=== PATIENT | female | born 1940 | race Caucasian/White ===

== ENCOUNTER 2017-11-25 06:00 | Day surgery (SDC) | payer OTHER ==
--- NOTE | 2017-11-23 10:24 | RAD REPORT ---
EXAM DESCRIPTION: Daysi Macario (2 Views)11/23/2017 9:26 am CLINICAL HISTORY: Preop for shoulder surgery COMPARISON: 2008 FINDINGS: The lungs appear clear of acute infiltrate. The heart is normal size IMPRESSION: No acute abnormalities displayed
[2017-11-23 10:30] LABS: Absolute Lymphocytes (CBC) 3.5 K/uL (0.7-4.9); Absolute Monocytes 0.5 K/uL (0.1-1.3); Absolute Neutrophil 3.1 K/uL (1.8-8.0); Basophils % 0.7 % (0-1.3); Eosinophils % 2.2 % (0-4.4); Hematocrit 40.8 % (36.0-45.0); Lymphocytes % 48.2 % (15.3-44.8); MCH 29.1 pg (27.0-35.0); MCV 88.5 fL (80-100); MPV 8.6 fL (7.6-11.3); Monocytes % 6.7 % (3.3-12.3); RBC Red Blood Cell Count 4.61 M/uL (3.86-4.86)
[2017-11-23 10:35] LABS: Protime INR 1.06
[2017-11-23 10:42] LABS: Potassium 3.6 mEq/L (3.6-5.0)
[2017-11-25] MEDS ORDERED: Ringers Lactate 1,000 ML IV ONE ×2 (06:08→10:05)
[2017-11-25] MEDS ORDERED: EPINEPHRINE/PF 1 MG/ML AMP ONE (06:56)
[2017-11-25] MEDS ORDERED: CLINDAMYCIN INJ 600 MG in NA CHLORIDE 0.9% 50 ML IV ONE (07:00)
[2017-11-25] MEDS ORDERED: FENTANYL CITR 100 MCG/2 ML ONE (07:01)
[2017-11-25] MEDS ORDERED: MIDAZOLAM HCL 2 MG/2 ML INJ ONE (07:01)
[2017-11-25] MEDS ORDERED: DEXAMETHASONE 10 MG/ML VIAL ONE (07:02)
[2017-11-25] MEDS ORDERED: ROPLVACAINE HCL 40 ML ONE (07:02)
[2017-11-25] MEDS ORDERED: ROCURONIUM 50 MG/5 ML VIAL IV ONE (07:12)
[2017-11-25] MEDS ORDERED: PROPOFOL 200 MG/20 ML VIAL IV ONE (07:12)
[2017-11-25] MEDS ORDERED: LIDOCAINE 2% ONE (07:15)
[2017-11-25] MEDS ORDERED: ONDANSETRON HCL 40 MG/20 ML VIAL ONE (08:08)
[2017-11-25] MEDS ORDERED: EPHEDRINE SULF 50 MG/5 ML SYR ONE (08:31)
[2017-11-25] MEDS ORDERED: GLYCOPYRROLATE 0.2 MG/ML SYR ONE (09:36)
[2017-11-25] MEDS ORDERED: NEOSTIGMINE 1 MG/ML -5 ML SYRINGE ONE (09:45)
--- NOTE | 2017-11-25 09:57 | P.BOP ---
Preoperative diagnosis: right rotator cuff tear, SLAP tear, impingement syndrome , AC arthrosis Postoperative diagnosis: same Primary procedure: right shoulder arthroscopic rotator cuff repair Secondary procedure: arthroscopic biceps tenotomy with SLAP debridement Other procedure(s): arthroscopic subacromial decompression with distal clavicle excision Disability Counselor: NONE,NONE Estimated blood loss: <10 cc Specimen: none Findings: see dictation Anesthesia: General Complications: None Implants: 5.5 mm arthrex corkscrew, 4.75 mm swivelock Fluids & blood products: per anesthesia record Transferred to: Recovery Room Condition: Good
[2017-11-25] MEDS ORDERED: PROMETHAZINE 25 MG/ML VIAL ONE (10:03)
--- NOTE | 2017-11-25 11:08 | RAD REPORT ---
EXAM DESCRIPTION: RAD - Shoulder 1 View - 11/25/2017 10:28 am FINDINGS: Single view of the shoulder obtained labeled postop. No fracture or dislocation. Width of the AC joint is within normal limits. No suspicious or unexpected finding.
[2017-11-25] MEDS ORDERED: HYDROCODONE/APAP 7.5/325 MG TAB ONE (11:18)
[2017-11-25] MEDS ORDERED: Mastisol Adhesive Liq ONE (12:25)
--- NOTE | 2017-11-25 20:51 | OP ---
Date of Procedure: 11/25/2017 Surgeon: Jagdish Turpin MD Preoperative Diagnoses: 1. Right shoulder rotator cuff tear. 2. Right shoulder SLAP tear. 3. Right shoulder bicipital tenosynovitis. 4. Right shoulder impingement syndrome. 5. Right shoulder AC joint arthrosis. Postoperative Diagnoses: 1. Right shoulder rotator cuff tear. 2. Right shoulder SLAP tear. 3. Right shoulder bicipital tenosynovitis. 4. Right shoulder impingement syndrome. 5. Right shoulder AC joint arthrosis. Procedure Performed: 1. Right shoulder arthroscopic rotator cuff repair. 2. Right shoulder arthroscopic biceps tenotomy and SLAP tear debridement. 3. Right shoulder arthroscopic subacromial decompression. 4. Right shoulder arthroscopic distal clavicle excision. Anesthesia: General endotracheal. Fluids: Per Anesthesia record. Estimated Blood Loss: Less than 10 cc. Complications: None. Implants: 1. One 5.5 mm Arthrex corkscrew. 2. One 4.75 mm Arthrex SwiveLock. Indication For Procedure: Ms. Olmstead is a 76-year-old female, who presented to my clinic with signs, symptoms, and MRI findings consistent with right shoulder rotator cuff tear as well impingement syndrome with AC joint arthrosis. I discussed with the patient at length risks and benefits associated with operative and nonoperative treatment as well as postoperative rehabilitation. The patient and her expressed understanding and elected to proceed with operative treatment. Description Of Procedure: After informed consent was obtained, the patient was identified in the preoperative holding area. The right upper extremity was marked. The patient was then taken back to PACU and underwent an interscalene block by Anesthesia. She was then taken to the operating room, transferred to the operating table in the supine fashion, and placed under general endotracheal anesthesia. She was then placed in the beach chair position with her extremities well padded. Right upper extremity was then examined and the patient had full range of motion with no instability noted of her glenohumeral joint. The right upper extremity was then prepped and draped in usual sterile fashion. A time-out was initiated. Correct patient and procedure were confirmed and identified. The patient had received preoperative prophylactic antibiotics via the posterior portal position. A spinal needle was introduced into glenohumeral joint. The shoulder was then injected with 30 cc of normal saline to distend the shoulder joint. A posterior portal was created and the arthroscope was introduced and a diagnostic arthroscopy was performed. The patient was noted to have pain of her superior labrum as well as type 2 SLAP tear. There was some mild inflammation and fraying of the biceps tendon anchor , and biceps tenotomy was performed. An arthroscopic shaver was then brought via an anterior portal that was placed in the cannula, and debridement was performed using arthroscopic shaver of the SLAP tear and debridement of the biceps tendon anchor after tenotomy was performed. The arthroscope was brought on the axillary pouch. There were no loose bodies into the pouch. Anterior and posterior labrum were found to be intact. Subscapularis was found to be intact. There was a full-thickness tear of the anterior aspect of the supraspinatus. Then, a lateral portal was created. An obturator was then able to be brought into the lateral shoulder and into the intra-articular space confirming a full-thickness tear. The arthroscope was then brought into subacromial space. Subacromial bursectomy was performed using arthroscopic shaver and radiofrequency ablator. The rotator cuff tear was then identified at inferior aspect of the supraspinatus. Using an arthroscopic shaver, the rotator cuff tear was debrided. The soft tissues were then debrided off the greater tuberosity and a yordan was used to create a bleeding bony bed for repair. A standard single stab incision was made just lateral to acromion for placement of the double loaded anchor. After the greater tuberosity was punched , a 5.5 mm Arthrex corkscrew was placed for medial row fixation. It was double loaded. The sutures were passed in an anterior to posterior fashion and medial row fixation was then performed tying the sutures in a horizontal mattress fashion. There was good medial row fixation. A single lateral row anchor was placed using a 4.75 mm Arthrex SwiveLock and passing all 4 suture limbs through it and this was placed in the lateral aspect of the greater tuberosity. There was good overall reduction of the rotator cuff tear. There was some fraying noted of the acromial ligament and a subacromial decompression was performed tearing off tissue of the undersurface of the acromion using a radiofrequency ablator and acromioplasty was then used with an arthroscopic yordan. Next, attention was taken to the AC joint via the anterior portal. Anterior portal was brought into the subacromial space. Radiofrequency ablator was then used to clean up the soft tissue on the undersurface of the AC joint and approximately 5 mm of distal clavicle was then removed using an arthroscopic yordan. The arthroscopic instruments were then removed without complications. Skin incisions at the portals were approximated using a 2-0 Vicryl and a 3-0 Monocryl. Sterile dressings were applied. The patient was placed in a postoperative shoulder immobilizer, awakened, and transferred to the PACU in stable condition. Postoperative Plan: Ms. Olmstead will follow Physical Therapy following the medium rotator cuff repair protocol to begin at 4 weeks postoperatively. She will follow up in my clinic next week for wound checks. PAZ/TORSTEN Voice ID: [id number] Report ID: [id number] ANDRES
== END 2017-11-25 12:00 | disposition home or self-care (01) ==
LOC: OR 06:00
PROVIDERS: ATTEND Orthopaedic Surgery Sports Medicine
PROC: 0RNJ4ZZ Release Right Shoulder Joint, Percutaneous Endoscopic Approach (ICD-10-PCS; 2017-11-25)
PROC: 0RBJ4ZZ Excision of Right Shoulder Joint, Percutaneous Endoscopic Approach (ICD-10-PCS; 2017-11-25)
PROC: 0PB94ZZ Excision of Right Clavicle, Percutaneous Endoscopic Approach (ICD-10-PCS; 2017-11-25)
PROC: 0LQ14ZZ Repair Right Shoulder Tendon, Percutaneous Endoscopic Approach (ICD-10-PCS; principal; 2017-11-25 07:30)
DX: M75.121 Complete rotator cuff tear or rupture of right shoulder, not specified as traumatic (principal); S43.431A Superior glenoid labrum lesion of right shoulder, initial encounter; M19.011 Primary osteoarthritis, right shoulder; M75.21 Bicipital tendinitis, right shoulder; M25.811 Other specified joint disorders, right shoulder; M19.90 Unspecified osteoarthritis, unspecified site; I10 Essential (primary) hypertension; E78.00 Pure hypercholesterolemia, unspecified; Z88.0 Allergy status to penicillin; Z83.3 Family history of diabetes mellitus; Z82.49 Family history of ischemic heart disease and other diseases of the circulatory system
CPT/HCPCS: 29822; 29824; 29826; 29827; 36415; 71046; 73020; 80048; 85025; 85610; 85730; J0171; J1100; J2250; J2405; J2550; J2710; J2795; J3010; J3490

== ENCOUNTER 2018-05-26 03:05 | Inpatient (IN) | payer OTHER ==
--- OUTSIDE RECORDS SUMMARY | 2018-05-26 03:07 | XMS REPORT ---
:1940 Author Organization [employer] Care Team Providers Name Role Phone Jagdish Turpin Provider Role Unavailable Allergies, Adverse Reactions, Alerts Substance Reaction Event Type penicillin Info Not Available Drug Allergy Problems Problem Type Condition Code Onset Dates Condition Status Problem Arthrosis of right M19.011 Active acromioclavicular joint Problem Complete rotator cuff tear or M75.121 Active rupture of right shoulder, not specified as traumatic Assessment Impingement syndrome of right M75.41 Active shoulder Assessment Pain, joint, shoulder, right M25.511 Active Assessment Complete rotator cuff tear or M75.121 Active rupture of right shoulder, not specified as traumatic Medications Medication Code Code Instructions Start End Status Dosage System Date Date Potassium [facility] 70292984565 10 MEQ Oral Active TAKE 1 Chloride Kiarra TABLET BY ER MOUTH EVERY DAY Carvedilol [facility] 09171359784 25 MG Oral Active TAKE 1 TABLET BY MOUTH TWICE A DAY WITH FOOD NIFEdipine ER [facility] 45032994566 30 MG Oral Active TAKE 1 TABLET (30 MG) BY MOUTH DAILY Valsartan-Hydr [facility] 01651586520 320-25 MG Oral Active TAKE 1 ochlorothiazid TABLET BY e MOUTH EVERY DAY Trazodone HCl [facility] 75139020966 50 MG Oral Active TAKE 1 TABLET BY MOUTH DAILY AT BEDTIME NEEDED [place] [facility] 34884127349 5-325 MG Orally Feb 28, Feb Active 1 tablet every 6 hrs 2017 14, as needed 2017 Hydrocodone-Ac [facility] 84031440558 7.5-325 MG Oral Active (Schedule etaminophen II Drug) TAKE 1 TABLET BY MOUTH EVERY 4-6 HOURS NEEDED FOR PAIN Results No Known Results Summary Purpose [employer] Submission
--- OUTSIDE RECORDS SUMMARY | 2018-05-26 03:07 | XMS REPORT ---
:1940 Author Organization [employer] Care Team Providers Name Role Phone Jagdish Turpin Provider Role Unavailable Allergies, Adverse Reactions, Alerts Substance Reaction Event Type penicillin Info Not Available Drug Allergy Problems Problem Type Condition Code Onset Dates Condition Status Assessment Sprain of right rotator cuff S43.421D Active capsule, subsequent encounter Problem Arthrosis of right M19.011 Active acromioclavicular joint Assessment Arthrosis of right M19.011 Active acromioclavicular joint Assessment Acute pain of right shoulder M25.511 Active Assessment Impingement syndrome of right M75.41 Active shoulder Medications Medication Code Code Instructions Start End Status Dosage System Date Date Carvedilol [facility] 03660514113 25 MG Oral Active TAKE 1 TABLET BY MOUTH TWICE A DAY WITH FOOD NIFEdipine ER [facility] 90924068302 30 MG Oral Active TAKE 1 TABLET (30 MG) BY MOUTH DAILY Hydrocodone-Ac [facility] 96327351688 5-325 MG Orally January 19, Jan 29, Active 1 tablet etaminophen every 6 hrs 2017 2017 as needed Hydrocodone-Ac [facility] 16837832220 7.5-325 MG Oral Active (Schedule etaminophen II Drug) TAKE 1 TABLET BY MOUTH EVERY 4-6 HOURS NEEDED FOR PAIN Trazodone HCl [facility] 80340287706 50 MG Oral Active TAKE 1 TABLET BY MOUTH DAILY AT BEDTIME NEEDED Potassium [facility] 97202249757 10 MEQ Oral Active TAKE 1 Chloride Kiarra TABLET BY ER MOUTH EVERY DAY Valsartan-Hydr [facility] 95944820758 320-25 MG Oral Active TAKE 1 ochlorothiazid TABLET BY e MOUTH EVERY DAY Results No Known Results Summary Purpose [employer] Submission
[2018-05-26] MEDS ORDERED: NA CHLORIDE 0.9% 500 ML ONE (04:28)
[2018-05-26 04:46] LABS: Protime INR 1.23
[2018-05-26 04:47] LABS: Absolute Lymphocytes (CBC) 3.9 K/uL (0.7-4.9); Absolute Monocytes 1.4 K/uL (0.1-1.3); Absolute Neutrophil 7.8 K/uL (1.8-8.0); Basophils % 0.2 % (0-1.3); Eosinophils % 0.7 % (0-4.4); Hematocrit 34.4 % (36.0-45.0); Lymphocytes % 29.7 % (15.3-44.8); MCH 30.1 pg (27.0-35.0); MCV 89.6 fL (80-100); MPV 9.4 fL (7.6-11.3); Monocytes % 10.3 % (3.3-12.3); RBC Red Blood Cell Count 3.84 M/uL (3.86-4.86)
[2018-05-26 04:59] LABS: ALT/SGPT 28 U/L (12-78); AST/SGOT 19 U/L (15-37); Alkaline Phosphatase 75 U/L (45-117); BUN Blood Urea Nitrogen 32 mg/dL (7-18); Bicarbonate 27 mmol/L (21-32); Bilirubin Direct 0.2 mg/dL (0-0.2); Bilirubin Total 0.5 mg/dL (0.2-1.0); Glucose Level 97 mg/dL (74-106); Magnesium 2.4 mg/dL (1.8-2.4); NT PRO-BNP 655 pg/mL (<450); Protein, Total 7.3 g/dL (6.4-8.2); Sodium Level 137 mmol/L (136-145); Troponin (Emerg Dept Use Only) < 0.02 ng/mL (0.0-0.045)
[2018-05-26] MEDS ORDERED: POTASSIUM 25 MEQ EFFERV TAB ONE (05:20)
--- NOTE | 2018-05-26 06:10 | EDPHYS ---
Physician Documentation [facility] Name: Julianne Olmstead Age: 77 yrs Sex: Female : 1940 Arrival Date: 05/26/2018 Time: 03:07 Bed 13 Private MD: ED Physician Cachorro Dumont HPI: 05/26 06:06 This 77 yrs old Female presents to ER via Ambulatory with complaints of Chest gs Pain. 06:06 The patient or guardian reports chest pain that is located primarily in the anterior gs chest wall. Onset: 2 day(s) ago. The pain does not radiate. Associated signs and symptoms: Pertinent positives: cough. The chest pain is described as a heaviness. Duration: The patient or guardian reports a single episode, that is still ongoing. Modifying factors: The symptoms are alleviated by nothing. the symptoms are aggravated by nothing. Severity of pain: At its worst the pain was moderate in the emergency department the pain is unchanged. Historical: - Allergies: 03:10 PENICILLINS; cc3 - Home Meds: 03:10 trazodone 50 mg Oral tab 1 tab once a day [Active]; Nifedipine ER Oral 30 mg daily cc3 [Active]; carvedilol 25 mg oral tab 1 tab 2 times per day [Active]; valsartan-hydrochlorothiazide 320-25 mg oral tab 1 tab once daily [Active]; - PMHx: 03:10 Hypertension; High Cholesterol; cc3 - PSHx: 03:10 ; Hysterectomy; rectal surgery; right ear surgery; kidney stent; cc3 - Immunization history:: Adult Immunizations up to date. - Social history:: Smoking status: Patient/guardian denies using tobacco, never smoked. - Ebola Screening: : No symptoms or risks identified at this time. ROS: 06:06 All other systems are negative. gs Exam: 06:06 Head/Face: Normocephalic, atraumatic. Eyes: Pupils equal round and reactive to light, gs extra-ocular motions intact. Lids and lashes normal. Conjunctiva and sclera are non-icteric and not injected. Cornea within normal limits. Periorbital areas with no swelling, redness, or edema. ENT: Nares patent. No nasal discharge, no septal abnormalities noted. Tympanic membranes are normal and external auditory canals are clear. Oropharynx with no redness, swelling, or masses, exudates, or evidence of obstruction, uvula midline. Mucous membranes moist. Neck: Trachea midline, no thyromegaly or masses palpated, and no cervical lymphadenopathy. Supple, full range of motion without nuchal rigidity, or vertebral point tenderness. No Meningismus. Chest/axilla: Normal chest wall appearance and motion. Nontender with no deformity. No lesions are appreciated. Cardiovascular: Regular rate and rhythm with a normal S1 and S2. No gallops, murmurs, or rubs. Normal PMI, no JVD. No pulse deficits. Abdomen/GI: Soft, non-tender, with normal bowel sounds. No distension or tympany. No guarding or rebound. No evidence of tenderness throughout. Back: No spinal tenderness. No costovertebral tenderness. Full range of motion. Skin: Warm, dry with normal turgor. Normal color with no rashes, no lesions, and no evidence of cellulitis. MS/ Extremity: Pulses equal, no cyanosis. Neurovascular intact. Full, normal range of motion. Neuro: Awake and alert, GCS 15, oriented to person, place, time, and situation. Cranial nerves II-XII grossly intact. Motor strength 5/5 in all extremities. Sensory grossly intact. Cerebellar exam normal. Normal gait. 06:06 Constitutional: The patient appears alert, awake. 06:06 ECG was reviewed by the Attending Physician. 06:06 Respiratory: the patient does not display signs of respiratory distress, Respirations: normal, Breath sounds: decreased breath sounds, that are mild, are located in both bases. Vital Signs: 03:10 BP 92 / 38 LA; Pulse 64; Resp 16 S; Temp 98.7(O); Pulse Ox 95% on R/A; Weight 68.04 kg cc3 (R); Height 5 ft. 0 in. (152.40 cm) (R); Pain 8/10; 03:41 BP 105 / 48 RA; Pulse 65; Resp 17; Pulse Ox 95% on R/A; cc3 04:45 BP 106 / 46; Pulse 72; Resp 17 S; Pulse Ox 96% on R/A; cc3 05:02 BP 92 / 41; Pulse 75; Resp 21 S; Pulse Ox 96% on R/A; cc3 06:12 BP 110 / 54; Pulse 78; Resp 19 S; Pulse Ox 95% on R/A; cc3 06:45 BP 112 / 60; Pulse 74; Resp 19 S; Pulse Ox 95% on R/A; cc3 07:23 BP 101 / 52; Pulse 74; Resp 18; Pulse Ox 96% on R/A; ph 03:10 Body Mass Index 29.30 (68.04 kg, 152.40 cm) cc3 MDM: 03:28 Patient medically screened. 06:06 Differential diagnosis: acute myocardial infarction, pleurisy, pneumonia, pulmonary gs embolus, thoracic aortic disection. Data reviewed: vital signs, nurses notes. Counseling: I had a detailed discussion with the patient and/or guardian regarding: the historical points, exam findings, and any diagnostic results supporting the discharge/admit diagnosis, the need for further work-up and treatment in the hospital. 05/26 03:29 Order name: Basic Metabolic Panel; Complete Time: 05:00 05/26 03:29 Order name: CBC with Diff; Complete Time: 05:00 05/26 03:29 Order name: LFT's; Complete Time: 05:00 05/26 03:29 Order name: Magnesium; Complete Time: 05:00 05/26 03:29 Order name: NT PRO-BNP; Complete Time: 05:00 05/26 03:29 Order name: PT-INR; Complete Time: 05:00 05/26 03:29 Order name: Troponin (emerg Dept Use Only); Complete Time: 05:00 05/26 03:29 Order name: XRAY Chest (1 view) 05/26 03:53 Order name: CT Chest For PE Angio 05/26 06:00 Order name: Lactate 05/26 06:00 Order name: Blood Culture* 05/26 06:00 Order name: Procalcitonin 05/26 03:29 Order name: EKG; Complete Time: 03:30 05/26 03:29 Order name: Cardiac monitoring; Complete Time: 03:42 05/26 03:29 Order name: EKG - Nurse/Tech; Complete Time: 03:42 05/26 03:29 Order name: IV Saline Lock; Complete Time: 03:49 05/26 03:29 Order name: Labs collected and sent; Complete Time: 03:49 05/26 03:29 Order name: O2 Per Protocol; Complete Time: 03:43 gs 05/26 03:29 Order name: O2 Sat Monitoring; Complete Time: 03:43 05/26 03:31 Order name: Misc. Order: check bp both arms; Complete Time: 03:42 gs 05/26 07:29 Order name: Diet Heart Healthy; Complete Time: 07:30 ph EC:06 Rate is 60 beats/min. Rhythm is regular. RI interval is normal. QRS interval is normal. gs T waves are Flattened. No ST changes noted. Clinical impression: NSR w/ Non-specific ST/T Changes. Interpreted by me. Administered Medications: 04:20 Drug: NS 0.9% 500 ml Route: IV; Rate: bolus; Site: left antecubital; cc3 05:40 Follow up: Response: No adverse reaction; IV Status: Completed infusion; IV Intake: cc3 500ml 05:35 Drug: Potassium Effervescent Tablet 50 mEq Route: PO; cc3 06:00 Follow up: Response: No adverse reaction cc3 06:35 Drug: NS 0.9% 1000 ml Route: IV; Rate: 1 bolus; Site: left antecubital; cc3 07:59 Follow up: IV Status: Completed infusion ph 06:40 Drug: Clindamycin 900 mg Route: IVPB; Infused Over: 30 mins; Site: left antecubital; cc3 07:24 Follow up: Response: No adverse reaction; IV Status: Completed infusion ph 07:25 Drug: Cefepime 1 grams Route: IVPB; Rate: 200 ml/hr; Infused Over: 30 mins; Site: left ph antecubital; 07:59 Follow up: Response: No adverse reaction; IV Status: Completed infusion ph Disposition: 05/26/18 06:09 Hospitalization ordered by Tenisha Franklin for Inpatient Admission. Preliminary diagnosis is Lobar pneumonia, unspecified organism. - Bed requested for Telemetry/MedSurg (observation). - Status is Inpatient Admission. ph - Condition is Stable. - Problem is new. - Symptoms have improved. UTI on Admission? No Signatures: Dispatcher [employer] EDMichelle Garcia RN RN ph Fitzgerald, Diane, RN RN df Starr, Gregory, MD MD gs Cordel, Charlene cc3 Corrections: (The following items were deleted from the chart) 07: 06:09 Hospitalization Ordered by Tenisha Franklin MD for Inpatient Admission. Preliminary df diagnosis is Lobar pneumonia, unspecified organism. Bed requested for Telemetry/MedSurg (observation). Status is Inpatient Admission. Condition is Stable. Problem is new. Symptoms have improved. UTI on Admission? No. gs 08:42 07:31 05/26/2018 06:09 Hospitalization Ordered by Tenisha Franklin MD for Inpatient ph Admission. Preliminary diagnosis is Lobar pneumonia, unspecified organism. Bed requested for Telemetry/MedSurg (observation). Status is Inpatient Admission. Condition is Stable. Problem is new. Symptoms have improved. UTI on Admission? No. df
--- NOTE | 2018-05-26 06:10 | ER ---
Nurse's Notes [facility] Name: Julianne Olmstead Age: 77 yrs Sex: Female : 1940 Arrival Date: 05/26/2018 Time: 03:07 Bed 13 Private MD: Diagnosis: Lobar pneumonia, unspecified organism Presentation: 05/26 03:10 Presenting complaint: Patient states: Sudden chest and epigastric pain this morning. cc3 Transition of care: patient was not received from another setting of care. Onset of symptoms was May 26, 2018. Risk Assessment: Do you want to hurt yourself or someone else? Patient reports no desire to harm self or others. Initial Sepsis Screen: Does the patient meet any 2 criteria? No. Patient's initial sepsis screen is negative. Does the patient have a suspected source of infection? No. Patient's initial sepsis screen is negative. Care prior to arrival: Medication(s) given: took 2 baby Aspirin at 0200H. 03:10 Method Of Arrival: Ambulatory cc3 03:10 Acuity: KIAH 3 cc3 Triage Assessment: 03:10 General: Appears in no apparent distress. comfortable, Behavior is calm, cooperative, cc3 appropriate for age. Pain: Complains of pain in chest pain. Cardiovascular: Reports chest pain, since this morning. Historical: - Allergies: 03:10 PENICILLINS; cc3 - Home Meds: 03:10 trazodone 50 mg Oral tab 1 tab once a day [Active]; Nifedipine ER Oral 30 mg daily cc3 [Active]; carvedilol 25 mg oral tab 1 tab 2 times per day [Active]; valsartan-hydrochlorothiazide 320-25 mg oral tab 1 tab once daily [Active]; - PMHx: 03:10 Hypertension; High Cholesterol; cc3 - PSHx: 03:10 ; Hysterectomy; rectal surgery; right ear surgery; kidney stent; cc3 - Immunization history:: Adult Immunizations up to date. - Social history:: Smoking status: Patient/guardian denies using tobacco, never smoked. - Ebola Screening: : No symptoms or risks identified at this time. Screenin:10 Abuse screen: Denies threats or abuse. Denies injuries from another. Nutritional cc3 screening: No deficits noted. Tuberculosis screening: No symptoms or risk factors identified. Fall Risk Ambulatory Aid- None/Bed Rest/Nurse Assist (0 pts). Gait- Normal/Bed Rest/Wheelchair (0 pts) Mental Status- Oriented to own ability (0 pts). Assessment: 03:10 General: Appears in no apparent distress. comfortable, Behavior is calm, cooperative, cc3 appropriate for age. Pain: Complains of pain in chest pain Pain does not radiate. Pain began 1 hour ago. Neuro: Level of Consciousness is awake, alert, obeys commands, Oriented to person, place, time, situation, Appropriate for age. Cardiovascular: Reports chest pain, since this morning. Respiratory: Airway is patent Respiratory effort is even, unlabored, Respiratory pattern is regular, symmetrical. GI: Abdomen is round non-distended. : No signs and/or symptoms were reported regarding the genitourinary system. EENT: No signs and/or symptoms were reported regarding the EENT system. Derm: No signs and/or symptoms reported regarding the dermatologic system. Musculoskeletal: Circulation, motion, and sensation intact. Range of motion: intact in all extremities. 04:20 Reassessment: Patient appears in no apparent distress at this time. Patient and/or cc3 family updated on plan of care and expected duration. Pain level reassessed. Patient is alert, oriented x 3, equal unlabored respirations, skin warm/dry/pink. 05:30 Reassessment: Patient appears in no apparent distress at this time. Patient and/or cc3 family updated on plan of care and expected duration. Pain level reassessed. Patient is alert, oriented x 3, equal unlabored respirations, skin warm/dry/pink. 06:13 Reassessment: Patient appears in no apparent distress at this time. Patient and/or cc3 family updated on plan of care and expected duration. Pain level reassessed. Patient is alert, oriented x 3, equal unlabored respirations, skin warm/dry/pink. Patient is for admission, waiting for admission orders. Dr. Franklin at bedside. 07:00 Reassessment: Patient appears in no apparent distress at this time. Patient and/or cc3 family updated on plan of care and expected duration. Pain level reassessed. Patient is alert, oriented x 3, equal unlabored respirations, skin warm/dry/pink. Handed over to morning shift for continuity of care. 07:22 Reassessment: Patient appears in no apparent distress at this time. Patient and/or family updated on plan of care and expected duration. Pain level reassessed. Patient is alert, oriented x 3, equal unlabored respirations, skin warm/dry/pink. Pt resting quietly, denies pain or SOB at this time, VSS, awaiting room assignmnet. 08:01 Reassessment: Attempted to call report to 4th floor, receiving nurse unavailable at this time, was told that they would call back. Vital Signs: 03:10 BP 92 / 38 LA; Pulse 64; Resp 16 S; Temp 98.7(O); Pulse Ox 95% on R/A; Weight 68.04 kg cc3 (R); Height 5 ft. 0 in. (152.40 cm) (R); Pain 8/10; 03:41 BP 105 / 48 RA; Pulse 65; Resp 17; Pulse Ox 95% on R/A; cc3 04:45 BP 106 / 46; Pulse 72; Resp 17 S; Pulse Ox 96% on R/A; cc3 05:02 BP 92 / 41; Pulse 75; Resp 21 S; Pulse Ox 96% on R/A; cc3 06:12 BP 110 / 54; Pulse 78; Resp 19 S; Pulse Ox 95% on R/A; cc3 06:45 BP 112 / 60; Pulse 74; Resp 19 S; Pulse Ox 95% on R/A; cc3 07:23 BP 101 / 52; Pulse 74; Resp 18; Pulse Ox 96% on R/A; ph 03:10 Body Mass Index 29.30 (68.04 kg, 152.40 cm) cc3 ED Course: 03:07 Patient arrived in ED. am2 03:10 Patient maintains SpO2 saturation greater than 95% on room air. cc3 03:10 Arm band placed on right wrist. cc3 03:10 Patient has correct armband on for positive identification. Placed in gown. Bed in low cc3 position. Call light in reach. Side rails up X 1. quality assurance monitor chassis on. Pulse ox on. NIBP on. 03:11 Es Chapman is Primary Nurse. cc3 03:18 Cachorro Dumont MD is Attending Physician. gs 03:26 Triage completed. cc3 03:45 Inserted saline lock: 22 gauge in left antecubital area, using aseptic technique. Blood jd3 collected. 03:52 X-ray completed. Portable x-ray completed in exam room. Patient tolerated procedure kw well. 04:00 XRAY Chest (1 view) In Process Unspecified. EDMS 05:32 CT Chest For PE Angio In Process Unspecified. EDMS 05:33 CT completed. Patient tolerated procedure well. Patient moved to CT via stretcher. Patient moved back from CT. 06:09 Tenihsa Franklin MD is Hospitalizing Provider. gs 07:00 Report given to EMMIE PAPPAS. cc3 07:21 Michelle Lombardo RN is Primary Nurse. ph 07:53 No provider procedures requiring assistance completed. Patient admitted, IV remains in ph place. Administered Medications: 04:20 Drug: NS 0.9% 500 ml Route: IV; Rate: bolus; Site: left antecubital; cc3 05:40 Follow up: Response: No adverse reaction; IV Status: Completed infusion; IV Intake: cc3 500ml 05:35 Drug: Potassium Effervescent Tablet 50 mEq Route: PO; cc3 06:00 Follow up: Response: No adverse reaction cc3 06:35 Drug: NS 0.9% 1000 ml Route: IV; Rate: 1 bolus; Site: left antecubital; cc3 07:59 Follow up: IV Status: Completed infusion ph 06:40 Drug: Clindamycin 900 mg Route: IVPB; Infused Over: 30 mins; Site: left antecubital; cc3 07:24 Follow up: Response: No adverse reaction; IV Status: Completed infusion ph 07:25 Drug: Cefepime 1 grams Route: IVPB; Rate: 200 ml/hr; Infused Over: 30 mins; Site: left ph antecubital; 07:59 Follow up: Response: No adverse reaction; IV Status: Completed infusion ph Intake: 05:40 IV: 500ml; Total: 500ml. cc3 Outcome: 06:09 Decision to Hospitalize by Provider. gs 07:56 Admitted to Tele accompanied by [facility], via stretcher, room 424. ph 07:56 Condition: stable 07:56 Instructed on the need for admit. 08:42 Patient left the ED. ph Signatures: Dispatcher [employer] EDMS Wang Castillo Becky Langley Patricia, RN RN Wendy Saeed [facility] Cachorro Dumont MD MD gs Davies, Jonathon, RN RN jd3 Es Chapman cc3 Corrections: (The following items were deleted from the chart) 03:42 03:10 BP 92 / 38; Pulse 64bpm; Resp 16bpm; Spontaneous; Pulse Ox 95% RA; Temp 98.7F cc3 Oral; 68.04 kg Reported; Height 5 ft. 0 in. Reported; BMI: 29.2; Pain 8/10; cc3
[2018-05-26] MEDS ORDERED: CLINDAMYCIN 900MG/D5W 900 MG/50 ML IVPB IV ONE (06:18)
[2018-05-26] MEDS ORDERED: NA CHLORIDE 0.9% 1,000 ML ONE (06:18)
[2018-05-26] MEDS ORDERED: CEFEPIME 1 GM/100 ML BAG IV ONE (06:19)
[2018-05-26] MEDS ORDERED: ONDANSETRON 4 MG/2 ML VIAL IV PRN (07:03)
[2018-05-26] MEDS ORDERED: ACETAMINOPHEN 650MG/RECT SUPP PR PRN (07:03)
[2018-05-26] MEDS ORDERED: MAGNESIUM HYDROXIDE 8% 30 ML PO PRN (07:03)
--- NOTE | 2018-05-26 07:10 | P.HP ---
Certification for Inpatient Patient admitted to: Observation With expected LOS: <2 Midnights Patient will require the following post-hospital care: None Practitioner: I am a practitioner with admitting privileges, knowledge of patient current condition, hospital course, and medical plan of care. Services: Services provided to patient in accordance with Admission requirements found in Title 42 Section 412.3 of the Code of Federal Regulations Patient History Date of Service: 05/26/18 Reason for admission: Pneumonia History of Present Illness: Patient is a 69-year-old female came into the hospital with cough and fever. She was having some chest pain mainly towards the left breast which went down her left arm. Her symptoms were were not improving and she was worried that he could be your heart so she came into the emergency room. In the ER her workup revealed she had a left-sided pneumonia. She has had a CT scan which is been done to rule out pulmonary embolism. She also has had cardiac workup which so far is negative. Patient will be admitted to the hospital for IV antibiotic therapy. Patient has received her pneumonia and flu vaccine this year. She is normally very vibrant and active in the community. She will be admitted to the hospital for further workup and treatment. Allergies adhesive tape Allergy (Verified 11/23/17 09:21) Rash Penicillins Adverse Reaction (Verified 11/23/17 09:21) Nausea/Vomiting Home Medications: Ascorbic Acid [Vitamin C] 500 mg PO DAILY 11/23/17 Carvedilol [Coreg] 25 mg PO BID 11/23/17 Cholecalciferol (Vitamin D3) [Vitamin D 1000 Iu Tab] 1,000 unit PO DAILY Magnesium Oxide [Magnesium] 400 mg PO DAILY 11/23/17 Nifedipine [Nifedipine ER] 30 mg PO DAILY AFTER SUPPER 11/23/17 Narvon-3 Fatty Acids [Narvon-3] 1,000 mg PO DAILY 11/23/17 Plant Stanol Angie [Cholest Off] 450 mg PO DAILY 11/23/17 Potassium Chloride [Micro-K] 10 meq PO DAILY 11/23/17 Trazodone [Desyrel] 50 mg PO BEDTIME 11/23/17 Ubidecarenone/Vitamin E Mixed [Jqj88-Swb E 100 mg-10 Unit Sfg] 1 each PO DAILY 11/23/17 Valsartan/Hydrochlorothiazide [Valsartan-Hctz 160-12.5 mg Tab] 1 each PO [id number] 11/23/17 Vit A/Vit C/Vit E/Zinc/Copper [Icaps Areds Formula Tablet] 1 each PO DAILY 11/23 Vitamin B Complex [B-Complex Vitamin] 1 cap PO DAILY 11/23/17 - Past Medical/Surgical History -: Hypertension -: Hyper lipidemia -: C section -: Hysterectomy -: Rectal surgery -: Kidney stent - Family History Father Family History: Reviewed- Non-Contributory - Social History Smoking Status: Former smoker (When she was very young. Quit before she was in her 20s) Alcohol use: No CD- Drugs: No Review of Systems 10-point ROS is otherwise unremarkable Physical Examination - Vital Signs Temperature: 98 F Blood Pressure: 140/80 Pulse: 88 Respirations: 18 Pulse Ox (%): 96 - Physical Exam General: Alert, In no apparent distress, Oriented x3 HEENT: Atraumatic, PERRLA, Mucous membr. moist/pink, EOMI, Sclerae nonicteric Neck: Supple, 2+ carotid pulse no bruit, No LAD, Without JVD or thyroid abnormality Respiratory: Diminished, Rhonchi/gurgles Cardiovascular: Regular rate/rhythm, Normal S1 S2, No murmurs Gastrointestinal: Normal bowel sounds, Soft and benign, Non-distended, No tenderness Musculoskeletal: No clubbing, No swelling, No tenderness Integumentary: No rashes Neurological: Normal gait, Normal speech, Normal strength at 5/5 x4 extr, Normal tone, Sensation intact, Cranial nerves 3-12 intact, Normal affect Lymphatics: No axilla or inguinal lymphadenopathy - Studies Laboratory Data (last 24 hrs) 05/26/18 03:45: PT 14.5 H, INR 1.23 05/26/18 03:45: WBC 13.2 H, Hgb 11.5 L, Hct 34.4 L, Plt Count 255 05/26/18 03:45: Sodium 137, Potassium 3.0 L, BUN 32 H, Creatinine 1.00, Glucose 97, Magnesium 2.4, Total Bilirubin 0.5, AST 19, ALT 28, Alkaline Phosphatase 75 Assessment & Plan - Problems (Diagnosis) (1) Community acquired pneumonia Current Visit: Yes Status: Acute (2) Hypertension Current Visit: Yes Status: Acute (3) Hyperlipidemia Current Visit: Yes Status: Acute - Plan 1. Continue with IV antibiotics 2. Awaiting sputum and blood culture 3. Repeat chest x-ray 4. Continue with nebs as needed 5. O2 per protocol 6. Continue with gentle hydration 7. Repeat labs including CBC and renal function in a.m. 8. GI and DVT prophylaxis Discharge Plan: Home Plan to discharge in: 48 Hours - Advance Directives Does patient have a Living Will: No Does patient have a Durable POA for Healthcare: No - Code Status/Comfort Care Code Status Assessed: Yes Code Status: Full Code Critical Care: No Time Spent Managing PTS Care (In Minutes): 50
--- NOTE | 2018-05-26 07:18 | EKG ---
Test Date: 2018-05-26 Test Time: 03:37:32 Meter Reading Clerk: NOHEMI MEASUREMENT RESULTS: Intervals: Rate: 60 WA: 132 QRSD: 84 QT: 412 QTc: 412 [place]: P: 25 WA: 132 QRS: 17 T: 13 INTERPRETIVE STATEMENTS: Normal sinus rhythm Normal ECG Compared to ECG 11/25/2011 10:07:25 Atrial premature complex(es) no longer present T-wave abnormality no longer present Prolonged QT interval no longer present Electronically Signed On 05-26-18 07:17:56 COIL MACHINE SUPERVISOR by Allen Mcdermott
--- NOTE | 2018-05-26 08:25 | RAD REPORT ---
EXAM DESCRIPTION: CT - Chest For Pe Angio - 05/26/2018 8:15 am CLINICAL HISTORY: Chest pain COMPARISON: None. TECHNIQUE: Dynamically enhanced axial 3 mm thick images of the chest were obtained during administra tion of <100> mL Isovue 370 IV contrast. Coronal and oblique reconstruction images were generated and reviewed. Exam utilizes a protocol for optimal evaluation of pulmonary arterial tree. Preliminary re port generated by virtual radiologic a review prior to dictation Maximum intensity projections 3D imaging was utilized All CT scans are performed using dose optimization technique as appropriate and may include automated exposure control or mA/KV adjustment according to patient size. FINDINGS: A pulmonary embolus is not seen. A thoracic aortic aneurysm is not noted. A pleural effusion is not seen. A pericardial effusion is not seen. A 9 centimeter consolidation is present within the lingula. IMPRESSION: Negative for a pulmonary embolism. 9 centimeter the lingular consolidation consistent with pneumonia. It is recommended that this be fol lowed until it is clear to help exclude a post obstructive process/underlying mass
[2018-05-26] MEDS: IPRATROPIUM BROM 0.5MG/2.5ML NEB SCH ×3 (08:55→20:25)
[2018-05-26] MEDS: ALBUTEROL 2.5 MG/3 ML NEB SOL NEB SCH ×3 (08:55→20:25)
--- NOTE | 2018-05-26 09:13 | RAD REPORT ---
EXAM DESCRIPTION: Daysi Single View05/26/2018 3:52 am CLINICAL HISTORY: Chest pain COMPARISON: October 2017 FINDINGS: A lingular consolidation is seen. Right lung appears clear of acute infiltrate. The heart is normal size IMPRESSION: Lingular consolidation consist with pneumonia. This should be followed until it is clear to help exclude a post obstructive process/underlying mass
[2018-05-26] MEDS: NA CHLORIDE 0.9% 1,000 ML IV SCH ×2 (10:01→20:01)
[2018-05-26] MEDS: Levofloxacin500mg IV 500 MG/100 ML BAG IV SCH (10:02)
[2018-05-26] MEDS: ENOXAPARIN 40 MG/0.4 ML SQ SCH (10:09)
[2018-05-26 12:52] LABS: Potassium 3.7 mmol/L (3.5-5.1); Troponin I < 0.02 ng/mL (0.0-0.045)
[2018-05-26] MEDS ORDERED: POTASSIUM CL SA 10 MEQ TAB PO ONE (17:00)
[2018-05-26] MEDS: NIFEDIPINE XL 30 MG TABLET PO SCH (17:23)
[2018-05-26] MEDS: TRAZODONE 50 MG TABLET PO SCH (20:01)
[2018-05-26] MEDS: CARVEDILOL 25 MG TAB PO SCH (20:01)
--- NOTE | 2018-05-26 20:28 | PN ---
Date of Progress Note: 05/26/2018 Subjective: Patient seen and examined. Chart reviewed and case discussed with RN. The patient states her breathing is better. Chest pain is intermittent. Review of Systems: Negative except as above. Code Status: Full. Medications: List reviewed. Physical Examination: Vital Signs: Temperature 98.2, heart rate 77, blood pressure 94/50, respirations 18, O2 initially was 92% on room air. General: Awake, alert, oriented x3. Elderly female, ill-appearing, obese. CV: S1, S2. Regular rate and rhythm. Peripheral pulses present. No murmurs. Respiratory: Diminished breath sounds. Some rhonchi heard. No wheezing or stridor. No use of accessory muscles. Gastrointestinal: Abdomen is soft, nontender, nondistended. Positive bowel sounds. Extremities: No clubbing, cyanosis, or edema. No calf tenderness. Neuro: Cranial nerves 2 through 12 intact grossly. No focal neurological deficits. Speech is normal. Skin: No rashes. Normal skin turgor. Laboratory Data: Sodium 137, potassium 3 repeat potassium is 3.7, chloride 100 , CO2 27, BUN 32, creatinine 1, glucose 97, lactate 1.1, calcium 8.5, magnesium 2.4. Troponin less than 0.02 x2. Procalcitonin 0.05. WBC 13.2, hemoglobin and hematocrit 11.5 and 34.4, platelets 255, neutrophils 59%. Blood cultures pending. CT angio chest shows negative for PE. 9 cm lingular consolidation consistent with pneumonia. No pericardial or pleural effusion. Chest x-ray personally reviewed shows lingular consolidation consistent with pneumonia. Assessment And Plan: A 77-year-old female with: 1. Community-acquired pneumonia. We will continue with IV antibiotics and follow up on cultures left lingular consolidation present. 2. Essential hypertension. We will resume home medications as appropriate. 3. Hyperlipidemia, mixed. Continue statin. 4. Hypokalemia, replaced. 5. Gastrointestinal and deep venous thrombosis prophylaxis addressed. /MODL Voice ID: [id number] Report ID: [id number] [facility]ATR[facility] CENTERFlorencio
[2018-05-26] MEDS: ACETAMINOPHEN 500 MG TAB PO PRN (23:33)
[2018-05-27] MEDS: ALBUTEROL 2.5 MG/3 ML NEB SOL NEB SCH ×4 (01:13→20:11)
[2018-05-27] MEDS: IPRATROPIUM BROM 0.5MG/2.5ML NEB SCH ×4 (01:13→20:11)
[2018-05-27 04:21] LABS: Urine Appearance CLEAR; Urine Bilirubin NEGATIVE (NEG); Urine Blood NEGATIVE (NEG); Urine Color YELLOW; Urine Glucose NEGATIVE (NEG); Urine Protein NEGATIVE (NEG); Urine Specific Gravity <=1.005 (1.005-1.030); Urine pH 6.5 (5.0-7.0)
[2018-05-27 04:24] LABS: Urine Microscopic Reflex ORDER UMIC
[2018-05-27 05:15] LABS: Urine Bacteria <20 /HPF (<20); Urine Culture Reflex Order REFLEXED; Urine RBC <5 /HPF (NONE SEEN)
[2018-05-27 05:24] LABS: Absolute Lymphocytes (CBC) 3.4 K/uL (0.7-4.9); Absolute Monocytes 1.8 K/uL (0.1-1.3); Absolute Neutrophil 12.7 K/uL (1.8-8.0); Basophils % 0.4 % (0-1.3); Eosinophils % 0.7 % (0-4.4); Hematocrit 31.7 % (36.0-45.0); Lymphocytes % 18.8 % (15.3-44.8); MCH 30.2 pg (27.0-35.0); MCV 90.5 fL (80-100); MPV 9.2 fL (7.6-11.3); Monocytes % 10.1 % (3.3-12.3); RBC Red Blood Cell Count 3.51 M/uL (3.86-4.86)
[2018-05-27 05:41] LABS: BUN Blood Urea Nitrogen 13 mg/dL (7-18); Bicarbonate 25 mmol/L (21-32); Glucose Level 113 mg/dL (74-106); HDL Cholesterol 34 mg/dL (40-60); LDL Cholesterol, Calculated 109 (<130); Magnesium 2.1 mg/dL (1.8-2.4); Phosphorus 3.1 mg/dL (2.5-4.9); Potassium 3.6 mmol/L (3.5-5.1); Sodium Level 142 mmol/L (136-145)
[2018-05-27 05:51] LABS: Blood Morphology Comment NOT SEEN (NOT SEEN); Platelet Estimate ADEQ; Urine White Blood Cell Casts OK
[2018-05-27] MEDS ORDERED: POTASSIUM CL SA 10 MEQ TAB PO ONE (06:13)
[2018-05-27] MEDS ORDERED: HOME MED 1 EA UNK (Valsartan/Hydrochlorothiazide [Valsartan-Hctz 320-25 Mg Tab] 1 TAB) PO SCH (09:00)
[2018-05-27] MEDS: ACETAMINOPHEN 500 MG TAB PO PRN ×3 (09:05→22:42)
[2018-05-27] MEDS: CARVEDILOL 25 MG TAB PO SCH ×2 (09:06→20:39)
[2018-05-27] MEDS: VALSARTAN 80 MG TAB PO SCH (09:07)
[2018-05-27] MEDS: hydroCHLOROthiazide 25 MG TAB PO SCH (09:07)
[2018-05-27] MEDS: ENOXAPARIN 40 MG/0.4 ML SQ SCH (09:08)
[2018-05-27] MEDS: Levofloxacin500mg IV 500 MG/100 ML BAG IV SCH (09:08)
[2018-05-27] MEDS: NA CHLORIDE 0.9% 1,000 ML IV SCH ×2 (14:53→20:39)
[2018-05-27] MEDS: NIFEDIPINE XL 30 MG TABLET PO SCH (18:21)
[2018-05-27] MEDS: TRAZODONE 50 MG TABLET PO SCH (20:41)
--- NOTE | 2018-05-27 20:43 | PN ---
Date of Progress Note: 05/27/2018 Subjective: The patient seen and examined. Chart reviewed and case discussed with RN. The patient is doing better, however, still requiring supplemental oxygen. Having some cough, but no significant sputum production. Medication List: Reviewed. Physical Examination: Vital Signs: Temperature 97.8, heart rate 71, blood pressure 97/42, respirations 28, O2 of 88% on 3 L via nasal cannula. General: Awake, alert, oriented x3, ill-appearing elderly female, obese. CV: S1, S2. Regular rate and rhythm. Peripheral pulses present. Respiratory: Diminished breath sounds. No wheezing. Gastrointestinal: Abdomen is soft, nontender, nondistended. Positive bowel sounds. Extremities: No clubbing, cyanosis, or edema. Neurologic: Nonfocal. Laboratory Data: Sodium 142, potassium 3.6, chloride 109, CO2 of 25, BUN 13, creatinine 0.6, glucose 113, calcium 8.2, phosphorus 3.1, magnesium 2.1. Triglycerides 123, cholesterol 168, LDL 109, HDL 3 4. WBC 18.1, H and H of 10.6 and 31.7, platelets 220, neutrophils 70%. Assessment: A 77-year-old female with: 1.Community-acquired pneumonia, left lingular consolidation. White count trending up. We will cont inue IV antibiotics. Follow up on cultures. 2.Essential hypertension, stable. 3.Hypoxia. We will continue supplemental oxygen, wean as tolerated. 4.Hyperlipidemia. Continue statin. 5.Hypokalemia, replaced. 6.Gastrointestinal and deep venous thrombosis prophylaxis addressed. Plan: Continue to monitor renal oxygen as tolerated. The patient's white count trending upward. We will repeat chest x-ray in a.m. /TORSTEN Voice ID: [id number] Report ID: [id number]
[2018-05-28] MEDS: ALBUTEROL 2.5 MG/3 ML NEB SOL NEB SCH ×4 (01:09→20:05)
[2018-05-28] MEDS: IPRATROPIUM BROM 0.5MG/2.5ML NEB SCH ×4 (01:09→20:05)
[2018-05-28] MEDS: ACETAMINOPHEN 500 MG TAB PO PRN (03:55)
[2018-05-28 05:43] LABS: Absolute Lymphocytes (CBC) 2.6 K/uL (0.7-4.9); Absolute Monocytes 1.3 K/uL (0.1-1.3); Absolute Neutrophil 13.1 K/uL (1.8-8.0); Basophils % 0.2 % (0-1.3); Eosinophils % 0.8 % (0-4.4); Hematocrit 30.9 % (36.0-45.0); Lymphocytes % 15.2 % (15.3-44.8); MCH 29.8 pg (27.0-35.0); MCV 89.2 fL (80-100); MPV 8.6 fL (7.6-11.3); Monocytes % 7.4 % (3.3-12.3); RBC Red Blood Cell Count 3.46 M/uL (3.86-4.86)
[2018-05-28 05:59] LABS: ALT/SGPT 31 U/L (12-78); AST/SGOT 18 U/L (15-37); Albumin 2.3 g/dL (3.4-5.0); Alkaline Phosphatase 110 U/L (45-117); BUN Blood Urea Nitrogen 5 mg/dL (7-18); Bicarbonate 27 mmol/L (21-32); Bilirubin Total 0.6 mg/dL (0.2-1.0); Glucose Level 103 mg/dL (74-106); Protein, Total 6.2 g/dL (6.4-8.2); Sodium Level 139 mmol/L (136-145)
[2018-05-28] MEDS ORDERED: POTASSIUM CL SA 10 MEQ TAB PO ONE (06:31)
--- NOTE | 2018-05-28 07:33 | RAD REPORT ---
EXAM DESCRIPTION: RAD - Chest Pa And Lat (2 Views) - 05/28/2018 7:03 am CLINICAL HISTORY: COPD COMPARISON: May 26 TECHNIQUE: PA and lateral views of the chest were obtained. FINDINGS: The lungs are underinflated. Left upper lobe opacification is present. This is a slightly different distribution than seen on the prior examination. The more dense opacification in the left b ase has cleared. However, there is a more broadly distributed infiltrate in the left upper lobe. Righ t costophrenic angle blunting is present. . Heart size is normal and central vasculature is within normal limits. No pneumothorax. No acute bony finding noted. No aortic abnormality. IMPRESSION: Left upper lobe pneumonia findings are present. The dense consolidation in the left bas e has improved but there remains the overall left upper lobe pneumonia. Small right pleural effusion with no progressive right lung field finding.
[2018-05-28] MEDS: CARVEDILOL 25 MG TAB PO SCH ×2 (08:41→21:04)
[2018-05-28] MEDS: Levofloxacin500mg IV 500 MG/100 ML BAG IV SCH (08:41)
[2018-05-28] MEDS: VALSARTAN 80 MG TAB PO SCH (08:42)
[2018-05-28] MEDS: ENOXAPARIN 40 MG/0.4 ML SQ SCH (08:43)
[2018-05-28] MEDS: hydroCHLOROthiazide 25 MG TAB PO SCH (08:43)
[2018-05-28] MEDS: NA CHLORIDE 0.9% 1,000 ML IV SCH (13:20)
--- NOTE | 2018-05-28 13:41 | RAD REPORT ---
EXAM DESCRIPTION: CT - Thorax Wo Miller - 05/28/2018 1:19 pm CLINICAL HISTORY: Pneumonia, pleural effusion COMPARISON: CT chest May 26 TECHNIQUE: Axial 5 mm thick images of the chest were obtained without IV contrast. All CT scans are performed using dose optimization technique as appropriate and may include automated exposure control or mA/KV adjustment according to patient size. FINDINGS: Left upper lobe consolidation has progressed substantially since May 26. The lingula and much of the superior left upper lobe is now 0 involved. There is a small focus of infiltrate in t he anterolateral right apex. Partial atelectasis of the left lower lobe is present. Patient has devel oped small to moderate bilateral pleural effusions. No pneumothorax. No abnormal mediastinal or hilar masses or lymphadenopathy seen. No gross aortic or pulmonary artery finding suspected. Assessment is limited in the absence of IV contrast. No pericardial effusion. No chest wall mass or abnormal axillary lymphadenopathy. IMPRESSION: Worsening left upper lobe pneumonia with new patchy pneumonia changes in the right apex. Small to moderate bilateral pleural effusions.
[2018-05-28] MEDS ORDERED: POTASSIUM 25 MEQ EFFERV TAB PO ONE (15:00)
[2018-05-28] MEDS: NIFEDIPINE XL 30 MG TABLET PO SCH (17:11)
--- NOTE | 2018-05-28 21:03 | PN ---
Date of Progress Note: 05/28/2018 Subjective: The patient seen and examined. Chart reviewed and case discussed with RN. The patient still having dyspnea with exertion, still on supplemental oxygen, difficult to wean off. The patient now states that she has obstructive sleep apnea and uses CPAP at home. Medications List: Reviewed. Physical Examination: Vital Signs: Temperature 99, heart rate 78, blood pressure 112/56, respirations 18, O2 91% on 3 L via nasal cannula. General: Awake, alert, oriented x3. Elderly female, ill-appearing, with mild respiratory distress. CV: S1, S2. Regular rate and rhythm. Peripheral pulses present. Respiratory: Diminished breath sounds especially at the bases. No wheezing. The patient is slightly tachypneic. No use of accessory muscles. Gastrointestinal: Abdomen is soft, nontender, nondistended. Positive bowel sounds. Extremities: No clubbing, cyanosis, or edema. Neurologic: Nonfocal. Laboratory Data: Sodium 139, potassium 3.5, chloride 105, CO2 27, BUN 5, creatinine 0.4, glucose 103, calcium 8.2, albumin 2.3. WBC 17.1, H and H 10.3 and 30.9, platelets 273, neutrophils 76%. Blood cultures, no growth to date. Imaging Studies: CT scan shows worsening left upper lobe pneumonia with new patchy pneumonia changes in the right apex, small to moderate bilateral pleural effusion. Assessment And Plan: A 77-year-old female with: 1. Acute respiratory distress, 89% on 3 L via nasal cannula, likely secondary to pneumonia. 2. Possible aspiration pneumonia. The patient's CT chest shows worsening pneumonia on the left as well as elevation on the right apex. White count still elevated, trending down slowly at 17,000 with left shift. We will consult Pulmonology. 3. Essential hypertension, stable. 4. Hypoxia, on supplemental oxygen. 5. Mixed hyperlipidemia. Continue statin. 6. Hypokalemia. Replace and monitor. 7. Severe protein-calorie malnutrition. Albumin is 2.3. 8. Gastrointestinal and deep venous thrombosis prophylaxis addressed. Likely discharge in the next 24-48 hours depending on clinical response. 9. AMILCAR: on CPAP at home, to bring in her machine. She refuses hospital CPAP due to discomfort with full face mask. SA/MODL Voice ID: [id number] Report ID: [id number]
[2018-05-28] MEDS: TRAZODONE 50 MG TABLET PO SCH (21:10)
[2018-05-29] MEDS: ALBUTEROL 2.5 MG/3 ML NEB SOL NEB SCH ×4 (01:55→20:00)
[2018-05-29] MEDS: IPRATROPIUM BROM 0.5MG/2.5ML NEB SCH ×2 (01:55→09:07)
[2018-05-29 06:12] LABS: Absolute Lymphocytes (CBC) 2.4 K/uL (0.7-4.9); Absolute Monocytes 1.1 K/uL (0.1-1.3); Absolute Neutrophil 7.9 K/uL (1.8-8.0); Basophils % 0.3 % (0-1.3); Eosinophils % 1.3 % (0-4.4); Hematocrit 31.7 % (36.0-45.0); Lymphocytes % 20.5 % (15.3-44.8); MCH 30.4 pg (27.0-35.0); MCV 87.7 fL (80-100); Monocytes % 9.4 % (3.3-12.3); RBC Red Blood Cell Count 3.61 M/uL (3.86-4.86)
[2018-05-29 06:28] LABS: ALT/SGPT 42 U/L (12-78); AST/SGOT 30 U/L (15-37); Albumin 2.2 g/dL (3.4-5.0); Alkaline Phosphatase 111 U/L (45-117); BUN Blood Urea Nitrogen 7 mg/dL (7-18); Bicarbonate 27 mmol/L (21-32); Bilirubin Total 0.5 mg/dL (0.2-1.0); Glucose Level 94 mg/dL (74-106); Potassium 3.2 mmol/L (3.5-5.1); Protein, Total 6.5 g/dL (6.4-8.2); Sodium Level 138 mmol/L (136-145)
[2018-05-29] MEDS: CARVEDILOL 25 MG TAB PO SCH ×2 (08:45→21:00)
[2018-05-29] MEDS: Levofloxacin500mg IV 500 MG/100 ML BAG IV SCH (08:45)
[2018-05-29] MEDS: VALSARTAN 80 MG TAB PO SCH (08:46)
[2018-05-29] MEDS: hydroCHLOROthiazide 25 MG TAB PO SCH (08:47)
[2018-05-29] MEDS: ENOXAPARIN 40 MG/0.4 ML SQ SCH (08:48)
[2018-05-29] MEDS ORDERED: POTASSIUM 25 MEQ EFFERV TAB PO ONE ×2 (09:00→17:30)
[2018-05-29] MEDS ORDERED: IPRATROPIUM BROM 0.5MG/2.5ML NEB PRN (12:27)
--- NOTE | 2018-05-29 12:28 | P.CNS ---
Date of Consult: 05/29/18 Reason for Consult: Pneumonia and hypoxemia Chief Complaint: Pneumonia History of Present Illness: Patient is 69 years of age in in my office for sleep apnea admitted with a 3 day history of left-sided chest discomfort cough fever became progressively worse ended up in the hospital with a diagnosis of severe left lung pneumonia she feels a lot better today no chest pain fever chills vital signs all stable patient does have extensive consolidation on the left side and hypoxemia. Patient denies any chest pain Allergies adhesive tape Allergy (Verified 11/23/17 09:21) Rash Penicillins Adverse Reaction (Verified 11/23/17 09:21) Nausea/Vomiting Home Medications: Carvedilol [Coreg] 25 mg PO BID 11/23/17 Nifedipine [Nifedipine ER] 30 mg PO DAILY AFTER SUPPER 11/23/17 [place]-3 Fatty Acids [[place]-3] 1,000 mg PO DAILY 11/23/17 Trazodone [Desyrel] 50 mg PO BEDTIME 11/23/17 Valsartan/Hydrochlorothiazide [Valsartan-Hctz 320-25 mg Tab] 1 tab PO DAILY - Past Medical/Surgical History Diabetic: No -: Hypertension -: Hyper lipidemia -: C section -: Hysterectomy -: Rectal surgery -: Kidney stent -: right shoulder surgery -: vein surgery both legs - Family History Father History Unknown: Yes Medical History: Diabetes Family History: Reviewed- Non-Contributory Mother History Unknown: Yes Medical History: Lung disease Notes: COPD - Social History Smoking Status: Never smoker Alcohol use: No CD- Drugs: No Caffeine use: No Place of Residence: Home Review of Systems 10-point ROS is otherwise unremarkable Physical Examination Temp Pulse Resp BP Pulse Ox 98.2 F 85 24 H 126/53 L 94 05/29/18 08:00 05/29/18 08:47 05/29/18 08:00 05/29/18 08:47 05/29/18 08:00 General: Alert, Oriented x3 HEENT: Atraumatic Neck: Supple Respiratory: Crackles/rales (Crackles on the left side) Cardiovascular: No edema, Regular rate/rhythm Gastrointestinal: Normal bowel sounds, Soft and benign Laboratory Data (last 24 hrs) 05/28/18 13:03: Potassium 3.5 - Problems (1) Community acquired pneumonia Onset Date: 05/29/18 Current Visit: Yes Status: Acute Plan: Patient is 77 years of age admitted with extensive left upper lobe pneumonia CT scan shows extensive left upper lobe consolidation with left-sided pleural effusion was likely a streptococcal pneumonia patient's blood cultures are negative sputum cultures not done as she is currently stable 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
[2018-05-29 15:40] LABS: BUN Blood Urea Nitrogen 10 mg/dL (7-18); Bicarbonate 27 mmol/L (21-32); Glucose Level 88 mg/dL (74-106); Potassium 3.7 mmol/L (3.5-5.1); Sodium Level 139 mmol/L (136-145)
[2018-05-29] MEDS: NIFEDIPINE XL 30 MG TABLET PO SCH (17:31)
--- NOTE | 2018-05-29 19:34 | PN ---
Date of Progress Note: 05/29/2018 Subjective: Patient seen and examined. Chart reviewed and case discussed with RN and Dr. Wright. The patient is still requiring supplemental oxygen. Overall feels better. Review of Systems: Negative except as above. Medications: List reviewed. Physical Examination: Vital Signs: Temperature 98.2, heart rate 68, blood pressure 98/43, respirations 24, O2 92% on 2 L v ia nasal cannula. General: Awake, alert, oriented x3, not in acute distress. Elderly female. CV: S1, S2. Regular rate and rhythm. Peripheral pulses present. Respiratory: Diminished breath sounds in the left, otherwise moving air well. No wheezing. Gastrointestinal: Abdomen is soft, nontender, nondistended. Positive bowel sounds. Extremities: No clubbing, cyanosis, or edema. Neurologic: Nonfocal. Laboratory Data: Sodium 138, potassium 3.2, chloride 103, CO2 27, BUN 7, creatinine 0.5, glucose 94, calcium 8.6, albumin 2.2. WBC 11.5, hemoglobin and hematocrit 11 and 31.7, platelet 360, neutrophil s 68%. Blood cultures, no growth to date. Assessment: 1.Acute respiratory distress, improving, still requiring supplemental oxygen. O2 saturations on ed m air is 88% secondary to pneumonia. 2.Possible aspiration pneumonia. CT shows focal consolidation. We will continue with antibiotics s witched to p.o. WBC count improving down to 11.5 today. The patient is afebrile. Appreciate Dr. Frank jordan's input. 3.Essential hypertension, stable. 4.Hypoxia on supplemental oxygen. Wean as tolerated. 5.Mixed hyperlipidemia. Continue statin. 6.Hypokalemia. We will replace and monitor. 7.Severe protein-calorie malnutrition. Albumin is 2.2. Continue with supplementation. 8.Gastrointestinal and deep venous thrombosis prophylaxis with PPI and Lovenox. Plan: Discharge once off supplemental oxygen. SA/MODL Voice ID: [id number] Report ID: [id number]
[2018-05-29] MEDS: TRAZODONE 50 MG TABLET PO SCH (21:00)
[2018-05-30] MEDS: ALBUTEROL 2.5 MG/3 ML NEB SOL NEB SCH ×2 (02:00→08:39)
[2018-05-30 07:05] LABS: Absolute Lymphocytes (CBC) 3.4 K/uL (0.7-4.9); Absolute Neutrophil 6.4 K/uL (1.8-8.0); Basophils % 0.7 % (0-1.3); Eosinophils % 2.8 % (0-4.4); Hematocrit 33.3 % (36.0-45.0); Lymphocytes % 30.5 % (15.3-44.8); MCH 30.4 pg (27.0-35.0); MCV 88.3 fL (80-100); Monocytes % 8.6 % (3.3-12.3); RBC Red Blood Cell Count 3.76 M/uL (3.86-4.86)
[2018-05-30 07:25] LABS: ALT/SGPT 52 U/L (12-78); AST/SGOT 33 U/L (15-37); Albumin 2.3 g/dL (3.4-5.0); Alkaline Phosphatase 117 U/L (45-117); BUN Blood Urea Nitrogen 12 mg/dL (7-18); Bicarbonate 28 mmol/L (21-32); Bilirubin Total 0.4 mg/dL (0.2-1.0); Glucose Level 86 mg/dL (74-106); Potassium 3.6 mmol/L (3.5-5.1); Protein, Total 6.9 g/dL (6.4-8.2); Sodium Level 140 mmol/L (136-145)
[2018-05-30] MEDS ORDERED: POTASSIUM 25 MEQ EFFERV TAB PO ONE (08:04)
[2018-05-30] MEDS ORDERED: levoFLOXacin 500 MG TAB PO SCH (09:00)
[2018-05-30] MEDS: hydroCHLOROthiazide 25 MG TAB PO SCH (10:11)
[2018-05-30] MEDS: VALSARTAN 80 MG TAB PO SCH (10:12)
[2018-05-30] MEDS: CARVEDILOL 25 MG TAB PO SCH (10:13)
[2018-05-30] MEDS: ENOXAPARIN 40 MG/0.4 ML SQ SCH (10:13)
--- NOTE | 2018-06-08 11:03 | P.DS ---
Admission Date: 05/28/18 Discharge Date: 05/30/18 Disposition: ROUTINE DISCHARGE Discharge Condition: GOOD Reason for Admission: Pneumonia Consultations: Dr. Wright, Pulmonology Brief History of Present Illness: Patient is a 69-year-old female came into the hospital with cough and fever. She was having some chest pain mainly towards the left breast which went down her left arm. Her symptoms were were not improving and she was worried that he could be your heart so she came into the emergency room. In the ER her workup revealed she had a left-sided pneumonia. She has had a CT scan which is been done to rule out pulmonary embolism. She also has had cardiac workup which so far is negative. Patient will be admitted to the hospital for IV antibiotic therapy. Patient has received her pneumonia and flu vaccine this year. She is normally very vibrant and active in the community. She will be admitted to the hospital for further workup and treatment. Hospital Course: 1. Acute respiratory distress, Resolved, now off supplemental oxygen, sating above 90% on room air. 2. Possible aspiration pneumonia. CT shows focal consolidation. She was started on IV antbioitics, then switched to PO levaquin when tolerating oral. She was discharged on oral levaquin to complete a [address] Wright was consulted. She remained stable otherwise, at the time of discharge, she was alert oriented x 3, HDS and was symptom free. Vital Signs/Physical Exam: Temp Pulse Resp BP Pulse Ox 97.6 F 66 20 122/58 L 92 05/30/18 12:00 05/30/18 12:00 05/30/18 12:00 05/30/18 12:00 05/30/18 12:00 General: Alert, In no apparent distress HEENT: Atraumatic, PERRLA, EOMI Neck: Supple, JVD not distended Respiratory: Clear to auscultation bilaterally, Normal air movement Cardiovascular: Regular rate/rhythm, Normal S1 S2 Gastrointestinal: Normal bowel sounds, No tenderness Musculoskeletal: No tenderness Integumentary: No rashes Neurological: Normal speech, Normal tone, Normal affect Lymphatics: No axilla or inguinal lymphadenopathy Laboratory Data at Discharge: WBC 11.1 K/uL (4.3-10.9) H 05/30/18 05:44 Hgb 11.5 g/dL (12.0-15.0) L 05/30/18 05:44 Hct 33.3 % (36.0-45.0) L 05/30/18 05:44 Plt Count 418 K/uL (152-406) H 05/30/18 05:44 PT 14.5 SECONDS (9.5-12.5) H 05/26/18 03:45 INR 1.23 05/26/18 03:45 Sodium 140 mmol/L (136-145) 05/30/18 05:44 Potassium 3.6 mmol/L (3.5-5.1) 05/30/18 05:44 BUN 12 mg/dL (7-18) 05/30/18 05:44 Creatinine 0.50 mg/dL (0.55-1.3) L 05/30/18 05:44 Glucose 86 mg/dL (74-106) 05/30/18 05:44 Phosphorus 3.1 mg/dL (2.5-4.9) 05/27/18 04:59 Magnesium 2.1 mg/dL (1.8-2.4) 05/27/18 04:59 Total Bilirubin 0.4 mg/dL (0.2-1.0) 05/30/18 05:44 AST 33 U/L (15-37) 05/30/18 05:44 ALT 52 U/L (12-78) 05/30/18 05:44 Alkaline Phosphatase 117 U/L (45-117) 05/30/18 05:44 Troponin I 0.04 ng/mL (0.0-0.045) 05/26/18 17:55 Triglycerides 123 mg/dL (<150) 05/27/18 04:59 Cholesterol 168 mg/dL (<200) 05/27/18 04:59 HDL Cholesterol 34 mg/dL (40-60) L 05/27/18 04:59 Cholesterol/HDL Ratio 4.94 05/27/18 04:59 Home Medications: Carvedilol [Coreg*] 25 mg PO BID 11/23/17 Nifedipine [Nifedipine ER] 30 mg PO DAILY AFTER SUPPER 11/23/17 [place]-3 Fatty Acids [[place]-3] 1,000 mg PO DAILY 11/23/17 Trazodone [Desyrel*] 50 mg PO BEDTIME 11/23/17 Valsartan/Hydrochlorothiazide [Valsartan-Hctz 320-25 mg Tab] 1 tab PO DAILY Levofloxacin [Levaquin] 500 mg PO DAILY #6 tablet 05/30/18 New Medications: Levofloxacin [Levaquin] 500 mg PO DAILY #6 tablet Patient Discharge Instructions: Please follow up with the primary care physician in 1 week. New medications: Levofloxacin, an antibiotic for your pneumonia. You will take this medication once a day for the next 6 days. Prescription sent to pharmacy. Diet: AHA Activity: Ad ozzie Followup: Kyle Wright MD [ACTIVE - CAN ADMIT] - Simón Milton MD [Primary Care Provider] - Physician Review: Patient Assessed, Agree with Above Assessment and Plan Time spent managing pt's care (in minutes): 55
== END 2018-05-30 14:31 | disposition home or self-care (01) | DRG 177 ==
LOC: ER 03:05 → ERHOLD 06:18 → INTOOBSV 06:18 → 4TH 08:08 → OBSVTOIN 05-28 14:21
PROVIDERS: ADMIT Hospitalist; ATTEND Family Medicine
DX: J69.0 Pneumonitis due to inhalation of food and vomit (principal); E43 Unspecified severe protein-calorie malnutrition; J91.8 Pleural effusion in other conditions classified elsewhere; R06.03 Acute respiratory distress; R09.02 Hypoxemia; I10 Essential (primary) hypertension; E78.2 Mixed hyperlipidemia; E87.6 Hypokalemia; G47.33 Obstructive sleep apnea (adult) (pediatric); Z87.891 Personal history of nicotine dependence
CPT/HCPCS: 36415; 71045; 71046; 71250; 71275; 80048; 80053; 80061; 80076; 81003; 81015; 83605; 83735; 83880; 84100; 84132; 84145; 84484; 85025; 85610; 87040; 87086; 87088; 87804; 93005; 94640; 94760; 96361; 96365; 96367; 99285; G0378; J0692; J1650; J7030; Q9967

== ENCOUNTER 2019-06-09 13:58 | Inpatient (IN) | payer OTHER ==
--- OUTSIDE RECORDS SUMMARY | 2019-06-09 14:00 | XMS REPORT ---
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 Problem Complete rotator cuff tear or M75.121 Active rupture of right shoulder, not specified as traumatic Assessment Bladder pain R39.89 Active Assessment Urinary tract infection, site not N39.0 Active specified Assessment Hematuria, unspecified R31.9 Active Medications Medication Code Code Instructions Start End Status Dosage System Date Date Trazodone HCl [facility] 48661846697 50 MG Oral Active TAKE 1 TABLET BY MOUTH DAILY AT BEDTIME NEEDED Estradiol [facility] 82838763719 0.1 MG/GM Feb 12, Active as directed Vaginal Two 2019 times a Week Bactrim DS [facility] 01620634926 800-160 MG May 03, May 08, Active 1 tablet Orally Twice a 2018 2018 day Valsartan-Hydr [facility] 29380809020 320-25 MG Orally Active 1 tablet ochlorothiazid Once a day e Carvedilol [facility] 05290939309 25 MG Oral Active TAKE 1 TABLET BY MOUTH TWICE A DAY WITH FOOD NIFEdipine ER [facility] 33739673852 30 MG Oral Active TAKE 1 TABLET (30 MG) BY MOUTH DAILY Fish Oil [facility] 06543361479 1200 MG Orally Active 1 capsule Once a day Potassium [facility] 26160683131 10 MEQ Oral Active TAKE 1 Chloride Kiarra TABLET BY ER MOUTH EVERY DAY Results No Known Results Summary Purpose [employer] Submission
--- OUTSIDE RECORDS SUMMARY | 2019-06-09 14:00 | XMS REPORT ---
[...] right shoulder, not specified as traumatic Assessment History of recurrent UTI (urinary Z87.440 Active tract infection) Assessment Bladder pain R39.89 Active Assessment Urinary tract infection, site not N39.0 Active specified Assessment Hematuria, unspecified R31.9 Active Medications Medication Code Code Instructions Start End Status Dosage System Date Date Carvedilol [facility] 50826892217 25 MG Oral Active TAKE 1 TABLET BY MOUTH TWICE A DAY WITH FOOD Fish Oil [facility] 87567046551 1200 MG Orally Active 1 capsule Once a day Trazodone HCl [facility] 50566329335 50 MG Oral Active TAKE 1 TABLET BY MOUTH DAILY AT BEDTIME NEEDED Estradiol [facility] 49048142316 0.1 MG/GM Feb 12, Active as directed Vaginal Two 2019 times a Week Potassium [facility] 32929610280 10 MEQ Oral Active TAKE 1 Chloride Kiarra TABLET BY ER MOUTH EVERY DAY NIFEdipine ER [facility] 00001725347 30 MG Oral Active TAKE 1 TABLET (30 MG) BY MOUTH DAILY Valsartan-Hydr [facility] 95610996824 320-25 MG Orally Active 1 tablet ochlorothiazid Once a day e Bactrim DS [facility] 56961419251 800-160 MG Feb 12, Feb 17, Active 1 tablet Orally Twice a 2018 2018 day Results No Known Results Summary Purpose [employer] Submission
[2019-06-09 15:34] LABS: Protime INR 1.26
[2019-06-09 15:35] LABS: Absolute Lymphocytes (CBC) 2.8 K/uL (0.7-4.9); Basophils % 0.2 % (0-1.3); Hematocrit 33.9 % (36.0-45.0); Lymphocytes % 20.8 % (15.3-44.8); MPV 8.4 fL (7.6-11.3); RBC Red Blood Cell Count 3.87 M/uL (3.86-4.86)
[2019-06-09 15:49] LABS: ALT/SGPT 21 U/L (12-78); AST/SGOT 8 U/L (15-37); Albumin 2.8 g/dL (3.4-5.0); Alkaline Phosphatase 76 U/L (45-117); BUN Blood Urea Nitrogen 13 mg/dL (7-18); Bicarbonate 30 mmol/L (21-32); Bilirubin Direct 0.3 mg/dL (0-0.2); Bilirubin Total 0.8 mg/dL (0.2-1.0); Glucose Level 114 mg/dL (74-106); Magnesium 2.2 mg/dL (1.8-2.4); NT PRO-BNP 1414 pg/mL (<450); Potassium 3.8 mmol/L (3.5-5.1); Sodium Level 138 mmol/L (136-145); Troponin (Emerg Dept Use Only) < 0.02 ng/mL (0.0-0.045)
--- NOTE | 2019-06-09 16:32 | RAD REPORT ---
EXAM DESCRIPTION: CT - Chest Abdomen Pelvis W Cont - 06/09/2019 4:11 pm CLINICAL HISTORY: Chest and abdomen pain. LLQ pain;Cough;Chest pain COMPARISON: Thorax Wo Con dated 05/28/2018; Chest For Pe Angio dated 05/26/2018 TECHNIQUE: Approximately 100 mL nonionic IV contrast was administered to the patient. All CT scans are performed using dose optimization technique as appropriate and may include automated exposure control or mA/KV adjustment according to patient size. FINDINGS: Poorly defined linear opacities are present in the left upper lobe having the appearance o f a mild infiltrate/ pneumonia.Mild linear atelectasis is seen in lingula right lung base.Small amoun t of left pleural effusion is present.Mildly prominent lymph nodes are seen in both hilar regions as well as the mediastinum chronic in appearance. Mild diffuse fatty liver is present. The spleen, pancreas, adrenal glands and kidneys are within norm al limits. No bowel obstruction, free air, free fluid or abscess. The appendix is not identified as a discrete s tructure, however, no secondary findings of appendicitis are identified. Trace fluid is seen in the pelvis. Sigmoid diverticulosis is noted without diverticulitis. Small fat containing umbilical hernia . No pathologic lymphadenopathy in the abdomen or pelvis. Moderate lumbosacral degenerative changes. IMPRESSION: Mild developing left upper lobe pneumonia suspected with small pleural effusion on the l eft.
[2019-06-09] MEDS ORDERED: AZITHROMYCIN 500 MG INJ IVPB ONE (17:06)
[2019-06-09] MEDS ORDERED: NA CHLORIDE 0.9% 100 ML IV ONE (17:06)
[2019-06-09] MEDS ORDERED: CEFTRIAXONE/SWI 1gm 1 GM/10 ML SYR ONE (17:06)
[2019-06-09] MEDS ORDERED: NA CHLORIDE 0.9% 500 ML ONE (17:59)
[2019-06-09] MEDS ORDERED: ALBUTEROL 2.5 MG/3 ML NEB SOL ONE (18:28)
--- NOTE | 2019-06-09 18:35 | ER ---
Nurse's Notes [facility] Name: Julianne Olmstead Age: 78 yrs Sex: Female : 1940 Arrival Date: 06/09/2019 Time: 14:01 Bed 25 Private MD: Diagnosis: Pneumonia, unspecified organism Presentation: 06/09 14:05 Presenting complaint: Patient states: chest pain, right side pain, non-productive cough sv started Tuesday. Transition of care: patient was not received from another setting of care. Onset of symptoms was June 05, 2019. Risk Assessment: Do you want to hurt yourself or someone else? Patient reports no desire to harm self or others. Care prior to arrival: None. 14:05 Method Of Arrival: Ambulatory sv 14:05 Acuity: KIAH 2 sv 15:47 Initial Sepsis Screen: Does the patient meet any 2 criteria? No. Patient's initial rv sepsis screen is negative. Does the patient have a suspected source of infection? No. Patient's initial sepsis screen is negative. Historical: - Allergies: 14:07 PENICILLINS; sv - PMHx: 14:07 High Cholesterol; Hypertension; sv - PSHx: 14:07 ; Hysterectomy; rectal surgery; right ear surgery; kidney stent; sv - Immunization history:: Adult Immunizations up to date. - Social history:: Smoking status: Patient/guardian denies using tobacco. - Ebola Screening: : No symptoms or risks identified at this time. Screenin:47 Abuse screen: Denies threats or abuse. Denies injuries from another. Nutritional rv screening: No deficits noted. Tuberculosis screening: No symptoms or risk factors identified. Fall Risk None identified. Assessment: 15:46 General: Appears in no apparent distress. comfortable, Behavior is calm, cooperative. rv Pain: Complains of pain in left lower quadrant. Neuro: Level of Consciousness is awake, alert, obeys commands, Oriented to person, place, time, situation. Cardiovascular: Patient's skin is warm and dry. Respiratory: Airway is compromised. GI: No signs and/or symptoms were reported involving the gastrointestinal system. : No signs and/or symptoms were reported regarding the genitourinary system. EENT: No signs and/or symptoms were reported regarding the EENT system. Derm: Skin is intact. Musculoskeletal: No signs and/or symptoms reported regarding the musculoskeletal system. 16:07 Reassessment: No changes from previously documented assessment. patient taken to CT rv scan. 17:51 Reassessment: Patient appears in no apparent distress at this time. No changes from rv previously documented assessment. Patient and/or family updated on plan of care and expected duration. Pain level reassessed. Patient is alert, oriented x 3, equal unlabored respirations, skin warm/dry/pink. patient verbalized that she wants to stay in the hospital. talked to Keyshawn, and explained to the patient the plan of care. awaiting decision while observing the patient without oxygen supplementation. Vital Signs: 14:07 BP 145 / 122; Pulse 63; Resp 20; Temp 99.2(O); Pulse Ox 94% ; Weight 74.84 kg; Height 5 sv ft. 0 in. (152.40 cm); 15:30 BP 127 / 59; Pulse 62; Resp 16; Pulse Ox 98% on R/A; rv 15:30 BP 99 / 55; Pulse 55; Resp 15; Pulse Ox 97% on R/A; rv 16:30 BP 134 / 52; Pulse 56; Resp 25; Pulse Ox 98% on 2 lpm NC; rv 17:15 BP 140 / 66; Pulse 59; Resp 22; Pulse Ox 99% on 2 lpm NC; rv 17:40 BP 126 / 61; Pulse 72; Resp 21; Pulse Ox 92% on R/A; rv 18:45 BP 115 / 52; Pulse 69; Resp 20; Pulse Ox 99% on 2 lpm NC; rv 19:30 BP 127 / 51; Pulse 67; Resp 23; Pulse Ox 94% on R/A; rv 20:15 BP 115 / 51; Pulse 71; Resp 24; Pulse Ox 96% on 2 lpm NC; rv 14:07 Body Mass Index 32.22 (74.84 kg, 152.40 cm) sv ED Course: 14:01 Patient arrived in ED. as 14:06 Triage completed. sv 14:07 Arm band placed on. sv 14:11 Keyshawn Vega NP is PHCP. pm1 14:11 Anam Mccann MD is Attending Physician. pm1 14:21 Bairon Malone RN is Primary Nurse. rv 15:09 Radiology exam delayed due to lab results not completed at this time. (BUN/Creatinine). mw3 15:15 Inserted saline lock: 22 gauge in right forearm, using aseptic technique. rv 15:47 Patient has correct armband on for positive identification. Bed in low position. Call rv light in reach. Side rails up X 1. threat monitoring analyst on. Pulse ox on. NIBP on. 16:11 CT completed. Patient tolerated procedure well. Patient moved back from CT. mw3 16:12 CT Chest, Abdomen, Pelvis - W/Contrast In Process Unspecified. EDMS 18:24 Ion Christensen DO is Hospitalizing Provider. pm1 20:19 No provider procedures requiring assistance completed. Patient admitted, IV remains in rv place. Administered Medications: 17:12 Drug: Rocephin 1 grams Route: IV; Rate: calculated rate; Site: right forearm; rv 18:56 Follow up: IV Status: Completed infusion rv 17:12 Drug: AZITHromycin 500 mg Route: IVPB; Infused Over: 1 hrs; Site: right forearm; rv 18:56 Follow up: IV Status: Completed infusion; IV Intake: 250ml rv 18:30 Drug: Albuterol 2.5 mg Route: Inhalation; rv Intake: 18:56 IV: 250ml; Total: 250ml. rv Outcome: 18:25 Decision to Hospitalize by Provider. pm1 20:19 Admitted to Med/surg accompanied by tech, via wheelchair, room 207, with chart, Report rv called to carde 20:19 Condition: good 20:19 Instructed on the need for admit. 21:00 Patient left the ED. rv Signatures: Dispatcher [employer] EDLA Chaparrita Sibley, Veronique Brambila RN, Patrick, FRANK UTILITY WORKER [employer] pm1 Jodi Murdock mw3 Bairon Malone RN RN rv
--- NOTE | 2019-06-09 18:36 | EDPHYS ---
Physician Documentation [facility] Name: Julianne Olmstead Age: 78 yrs Sex: Female : 1940 Arrival Date: 06/09/2019 Time: 14:01 Bed 25 Private MD: ED Physician Anam Mccann HPI: 06/09 15:50 This 78 yrs old Female presents to ER via Ambulatory with complaints of Flu pm1 Symptoms. 15:50 The patient or guardian reports chest pain that is located primarily in the anterior pm1 aspect of left upper chest. 15:50 Onset: 4 day(s) ago. The pain does not radiate. Associated signs and symptoms: pm1 Pertinent positives: abdominal pain, cough, Pertinent negatives: dizziness, headache, nausea, shortness of breath, vomiting. The chest pain is described as sharp. Modifying factors: the symptoms are aggravated by Constant pain that is worse with coughing. Severity of pain: in the emergency department the pain. The patient has experienced a previous episode, last year, diagnosed with pneumonia. Patient also complaining of left lower quadrant abdominal pain for the past 2 weeks. Historical: - Allergies: 14:07 PENICILLINS; sv - PMHx: 14:07 High Cholesterol; Hypertension; sv - PSHx: 14:07 ; Hysterectomy; rectal surgery; right ear surgery; kidney stent; sv - Immunization history:: Adult Immunizations up to date. - Social history:: Smoking status: Patient/guardian denies using tobacco. - Ebola Screening: : No symptoms or risks identified at this time. ROS: 15:50 Eyes: Negative for injury, pain, redness, and discharge. pm1 15:50 ENT: Negative for injury, pain, and discharge, Neck: Negative for injury, pain, and swelling. 15:50 Back: Negative for injury and pain, : Negative for injury, bleeding, discharge, and swelling, MS/Extremity: Negative for injury and deformity, Skin: Negative for injury, rash, and discoloration, Neuro: Negative for headache, weakness, numbness, tingling, and seizure. 15:50 Constitutional: Positive for subjective fever, Negative for poor PO intake. 15:50 Cardiovascular: Positive for chest pain, Negative for orthopnea, palpitations. 15:50 Respiratory: Positive for cough, Negative for shortness of breath, sputum production, wheezing. 15:50 Abdomen/GI: Positive for abdominal pain, of the left lower quadrant, Negative for nausea, vomiting, and diarrhea. Exam: 15:50 Constitutional: This is a well developed, well nourished patient who is awake, alert, pm1 and in no acute distress. Head/Face: Normocephalic, atraumatic. Eyes: Pupils equal round and reactive to light, extra-ocular motions intact. Lids and lashes normal. Conjunctiva and sclera are non-icteric and not injected. Cornea within normal limits. Periorbital areas with no swelling, redness, or edema. ENT: Nares patent. No nasal discharge, no septal abnormalities noted. Tympanic membranes are normal and external auditory canals are clear. Oropharynx with no redness, swelling, or masses, exudates, or evidence of obstruction, uvula midline. Mucous membranes moist. Neck: Trachea midline, no thyromegaly or masses palpated, and no cervical lymphadenopathy. Supple, full range of motion without nuchal rigidity, or vertebral point tenderness. No Meningismus. Cardiovascular: Regular rate and rhythm with a normal S1 and S2. No gallops, murmurs, or rubs. Normal PMI, no JVD. No pulse deficits. Respiratory: Lungs have equal breath sounds bilaterally, clear to auscultation and percussion. No rales, rhonchi or wheezes noted. No increased work of breathing, no retractions or nasal flaring. Abdomen/GI: Soft, non-tender, with normal bowel sounds. No distension or tympany. No guarding or rebound. No evidence of tenderness throughout. Back: No spinal tenderness. No costovertebral tenderness. Full range of motion. 15:50 Skin: Warm, dry with normal turgor. Normal color with no rashes, no lesions, and no evidence of cellulitis. MS/ Extremity: Pulses equal, no cyanosis. Neurovascular intact. Full, normal range of motion. 15:50 Chest/axilla: Inspection: normal, Palpation: tenderness, that is mild, of the anterior aspect of left upper chest, that totally reproduces the patient's complaints. 15:50 Neuro: Orientation: is normal, Motor: is normal, moves all fours. Vital Signs: 14:07 BP 145 / 122; Pulse 63; Resp 20; Temp 99.2(O); Pulse Ox 94% ; Weight 74.84 kg; Height 5 sv ft. 0 in. (152.40 cm); 15:30 BP 127 / 59; Pulse 62; Resp 16; Pulse Ox 98% on R/A; rv 15:30 BP 99 / 55; Pulse 55; Resp 15; Pulse Ox 97% on R/A; rv 16:30 BP 134 / 52; Pulse 56; Resp 25; Pulse Ox 98% on 2 lpm NC; rv 17:15 BP 140 / 66; Pulse 59; Resp 22; Pulse Ox 99% on 2 lpm NC; rv 17:40 BP 126 / 61; Pulse 72; Resp 21; Pulse Ox 92% on R/A; rv 18:45 BP 115 / 52; Pulse 69; Resp 20; Pulse Ox 99% on 2 lpm NC; rv 19:30 BP 127 / 51; Pulse 67; Resp 23; Pulse Ox 94% on R/A; rv 20:15 BP 115 / 51; Pulse 71; Resp 24; Pulse Ox 96% on 2 lpm NC; rv 14:07 Body Mass Index 32.22 (74.84 kg, 152.40 cm) sv MDM: 14:11 Patient medically screened. pm1 15:55 Data reviewed: vital signs. pm1 16:57 Counseling: I had a detailed discussion with the patient and/or guardian regarding: the pm1 historical points, exam findings, and any diagnostic results supporting the discharge/admit diagnosis, lab results, radiology results, the need for further work-up and treatment in the hospital. 16:58 ED course: Patient with PSI/PORT score of 79. Recommended admission but patient wants pm1 to go home to prepare for [place]. Will give patient antibiotic treatment in the ER and discharge with antibiotics. Educated on return precautions. 18:23 ED course: Patient changed her mind and wants to stay in the hospital. O2 sat 86-92 on pm1 RA with complaints of shortness of breath and RR 20-22. 19:10 Physician consultation: Ion Christensen DO was called at 19:10, was contacted at 19:10, pm1 regarding admission, in the emergency department to see patient at 19:10. 06/09 14:31 Order name: Flu; Complete Time: 15:48 pm1 06/09 14:31 Order name: Basic Metabolic Panel; Complete Time: 15:49 pm1 06/09 14:31 Order name: CBC with Diff; Complete Time: 15:48 pm1 06/09 14:31 Order name: LFT's; Complete Time: 15:49 pm1 06/09 14:31 Order name: Magnesium; Complete Time: 15:49 pm1 06/09 14:31 Order name: NT PRO-BNP; Complete Time: 15:49 pm1 06/09 14:31 Order name: PT-INR; Complete Time: 15:48 pm1 06/09 14:31 Order name: Troponin (emerg Dept Use Only); Complete Time: 15:49 pm1 06/09 14:31 Order name: CT Chest, Abdomen, Pelvis - W/Contrast; Complete Time: 16:38 pm1 06/09 19:10 Order name: Blood Culture Adult (2) pm1 06/09 19:10 Order name: Procalcitonin; Complete Time: 22:05 pm1 06/09 19:10 Order name: Lactate; Complete Time: 22:05 pm1 06/09 19:46 Order name: Sputum Culture [facility] 06/09 19:46 Order name: Group A Streptococcus Rapid Sc [facility] 06/09 14:31 Order name: EKG; Complete Time: 14:32 pm1 06/09 14:31 Order name: Cardiac monitoring; Complete Time: 15:46 pm1 06/09 14:31 Order name: EKG - Nurse/Tech; Complete Time: 15:46 pm1 06/09 14:31 Order name: IV Saline Lock; Complete Time: 15:46 pm1 06/09 14:31 Order name: Labs collected and sent; Complete Time: 15:46 pm1 06/09 14:31 Order name: O2 Per Protocol; Complete Time: 15:46 pm1 06/09 14:31 Order name: O2 Sat Monitoring; Complete Time: 15:46 pm1 Administered Medications: 17:12 Drug: Rocephin 1 grams Route: IV; Rate: calculated rate; Site: right forearm; rv 18:56 Follow up: IV Status: Completed infusion rv 17:12 Drug: AZITHromycin 500 mg Route: IVPB; Infused Over: 1 hrs; Site: right forearm; rv 18:56 Follow up: IV Status: Completed infusion; IV Intake: 250ml rv 18:30 Drug: Albuterol 2.5 mg Route: Inhalation; rv Disposition: 06/09/19 18:25 Hospitalization ordered by Ion Christensen for Observation. Preliminary diagnosis is Pneumonia, unspecified organism. - Bed requested for Telemetry/MedSurg (observation). - Status is Observation. rv - Condition is Stable. - Problem is new. - Symptoms have improved. UTI on Admission? No Addendum: 06/11/2019 10:24 Co-signature as Attending Physician, Anma Mccann MD I agree with the assessment and c hall plan of care. Signatures: Dispatcher [employer] Chaparrita Funes, RN RN Anam Webb MD MD cha Garcia, Cindy, RN RN cg Keyshawn Vega, OPEN HEARTH WORKER OPEN HEARTH WORKER pm1 Bairon Malone, RN RN rv Corrections: (The following items were deleted from the chart) 06/09 19:46 18:25 Hospitalization Ordered by Ion Christensen DO for Observation. Preliminary cg diagnosis is Pneumonia, unspecified organism. Bed requested for Telemetry/MedSurg (observation). Status is Observation. Condition is Stable. Problem is new. Symptoms have improved. UTI on Admission? No. pm1 21:00 19:46 06/09/2019 18:25 Hospitalization Ordered by Ion Christensen DO for Observation. rv Preliminary diagnosis is Pneumonia, unspecified organism. Bed requested for Telemetry/MedSurg (observation). Status is Observation. Condition is Stable. Problem is new. Symptoms have improved. UTI on Admission? No. cg
--- NOTE | 2019-06-09 19:52 | P.HP ---
Certification for Inpatient Patient admitted to: Observation With expected LOS: <2 Midnights Patient will require the following post-hospital care: None Practitioner: I am a practitioner with admitting privileges, knowledge of patient current condition, hospital course, and medical plan of care. Services: Services provided to patient in accordance with Admission requirements found in Title 42 Section 412.3 of the Code of Federal Regulations Patient History Date of Service: 06/09/19 Primary Care Provider: Dr. Hurley; Pulmonary-Dr. Wright Reason for admission: Chest pain, cough History of Present Illness: 78-year-old female with history of hypertension, hyperlipidemia and obstructive sleep apnea. She presented with cough and chest pain. Patient reports chest pain to the left side. She further reports increase cough , congestion over the last 4 days. She reports some subjective fever and chills. She reports a daughter with recent upper respiratory infection. Patient also mention some abdominal bloating. She came to the ER for further evaluation. In the ER patient was evaluated. Room-air saturations around 86%. She was slightly tachypneic. Blood pressure stable. White count 13.5, hemoglobin 11.4. Platelet count 233. Sodium 138, potassium 3.8, BUN of 13, creatinine 0.8 with a GFR of 68. Glucose 114. Influenza test negative. CT revealed left upper lobe pneumonia with small pleural effusion. No obstruction noted liver noted. Patient was admitted for further evaluation and treatment. Patient given IV antibiotic therapy in the emergency room. When I saw the patient in the ER, she appeared improved. No significant shortness of breath noted at that time. She reports history of pneumonia last year around the same time. Allergies adhesive tape Allergy (Verified 11/23/17 09:21) Rash Penicillins Adverse Reaction (Verified 11/23/17 09:21) Nausea/Vomiting Home medications list reviewed: Yes Home Medications: Nifedipine [Nifedipine ER] 30 mg PO DAILY AFTER SUPPER 11/23/17 Nemo-3 Fatty Acids [Nemo-3] 1,000 mg PO DAILY 11/23/17 Trazodone [Desyrel*] 50 mg PO BEDTIME 11/23/17 carvediloL [Coreg*] 25 mg PO BID 11/23/17 Valsartan/Hydrochlorothiazide [Valsartan-Hctz 320-25 mg Tab] 1 tab PO DAILY Levofloxacin [Levaquin] 500 mg PO DAILY #6 tablet 05/30/18 - Past Medical/Surgical History Diabetic: No -: Hypertension -: Hyperlipidemia -: Obstructive sleep apnea on CPAP -: x3 -: Hysterectomy -: Rectal surgery -: Kidney stent -: Right rotator cuff surgery -: vein surgery both legs Psychosocial/ Personal History: Patient is - Family History Family History: Reviewed- Non-Contributory - Family History Father -: Diabetes Mother -: Lung disease Notes: COPD - Social History Smoking Status: Never smoker Alcohol use: No CD- Drugs: No Caffeine use: No Place of Residence: Home Review of Systems General: Fever, Chills, As per HPI Eyes: Unremarkable ENT: Nose Congestion, As per HPI Respiratory: Cough, Shortness of Breath, As per HPI Cardiovascular: Chest Pain, As per HPI Gastrointestinal: Distention, As per HPI Genitourinary: Unremarkable Musculoskeletal: Unremarkable Integumentary: Unremarkable Neurological: Unremarkable Lymphatics: Unremarkable Physical Examination - Physical Exam General: Alert, In no apparent distress, Oriented x3, Cooperative HEENT: Atraumatic, Normocephalic, Mucous membr. moist/pink Neck: Supple Respiratory: Crackles/rales (Minimal crackles to the left base) Cardiovascular: Normal pulses, Regular rate/rhythm Gastrointestinal: Normal bowel sounds, Soft and benign, Non-distended, No tenderness, No masses, No rebound, No guarding Musculoskeletal: No erythema, No tenderness, No warmth Integumentary: No tenderness/swelling, No erythema, No warmth, No cyanosis Neurological: Normal speech, Normal strength at 5/5 x4 extr, Normal tone, Normal affect - Studies Laboratory Data (last 24 hrs) 06/09/19 15:18: PT 14.7 H, INR 1.26 06/09/19 15:18: WBC 13.5 H, Hgb 11.4 L, Hct 33.9 L, Plt Count 233 06/09/19 15:18: Sodium 138, Potassium 3.8, BUN 13, Creatinine 0.85, Glucose 114 H, Magnesium 2.2, Total Bilirubin 0.8, AST 8 L, ALT 21, Alkaline Phosphatase 76 Microbiology Data (last 24 hrs): 06/09/19 14:35 Nasopharnyx Influenza Type A Antigen Screen - Final 06/09/19 14:35 Nasopharnyx Influenza Type B Antigen Screen - Final Assessment and Plan - Plan Impression: Chest pain, cough secondary to left upper lobe pneumonia with small pleural effusion Hypertension Hyperlipidemia Fatty liver Obstructive sleep apnea on CPAP Plan: Chest pain, cough secondary to left upper lobe pneumonia with small pleural effusion: Patient will be admitted for observation. Will continue with IV Rocephin and Zithromax. Will provide medication for cough and congestion. Will provide DVT prophylaxis-Lovenox. Will provide medication for shortness of breath-albuterol/Atrovent. Will recheck chest x-ray tomorrow. Will wean off oxygen to maintain sats above 93%. Dr. Oconnor will continue coverage tomorrow for the hospitalist team. Anticipate discharge tomorrow with clinical improvement. Hypertension: Resume home medication of carvedilol, Nifedipine, valsartan/ hydrochlorothiazide. Will monitor and adjust appropriately. Hyperlipidemia: Continue with fish oil. Fatty liver: Noted on CT scan. Recommend GI evaluation as an outpatient to further address. Obstructive sleep apnea on CPAP: Patient may use home CPAP at night. Discharge Plan: Home Plan to discharge in: 24 Hours - Advance Directives Does patient have a Living Will: No Does patient have a Durable POA for Healthcare: No - Code Status/Comfort Care Code Status Assessed: Yes (Patient is full code) Time Spent Managing Pts Care (In Minutes): 55
[2019-06-09 21:36] VITALS: BMI 33.6
[2019-06-09] MEDS ORDERED: ACETAMINOPHEN 500 MG TAB PO PRN (21:36)
[2019-06-09] MEDS ORDERED: ONDANSETRON 4 MG/2 ML VIAL IV PRN (21:36)
[2019-06-09] MEDS ORDERED: ALBUTEROL 2.5 MG/3 ML NEB SOL NEB PRN (21:36)
[2019-06-09] MEDS ORDERED: IPRATROPIUM BROM 0.5MG/2.5ML NEB PRN (21:36)
[2019-06-09] MEDS: TRAZODONE 50 MG TABLET PO PRN (22:27)
[2019-06-09] MEDS: GUAIFENESIN 600 MG SA TAB PO SCH (22:27)
[2019-06-10] MEDS: carvediloL 25 MG TAB PO SCH ×2 (05:30→17:28)
[2019-06-10] MEDS: BENZONATATE 100 MG CAP PO PRN ×2 (05:30→17:28)
[2019-06-10 06:32] LABS: Absolute Lymphocytes (CBC) 2.8 K/uL (0.7-4.9); Basophils % 0.2 % (0-1.3); Hematocrit 31.4 % (36.0-45.0); Lymphocytes % 20.4 % (15.3-44.8); MPV 8.5 fL (7.6-11.3); RBC Red Blood Cell Count 3.57 M/uL (3.86-4.86)
[2019-06-10 06:36] LABS: BUN Blood Urea Nitrogen 12 mg/dL (7-18); Bicarbonate 28 mmol/L (21-32); Glucose Level 101 mg/dL (74-106); Sodium Level 137 mmol/L (136-145)
[2019-06-10] MEDS: DOCOSAHEXANOIC AC/EPA 1000 MG PO SCH (08:15)
[2019-06-10] MEDS: GUAIFENESIN 600 MG SA TAB PO SCH ×2 (08:16→20:38)
[2019-06-10] MEDS: ENOXAPARIN 40 MG/0.4 ML SQ SCH (08:17)
[2019-06-10] MEDS ORDERED: CEFTRIAXONE/SWI 1gm 1 GM/10 ML SYR IVP SCH (09:00)
[2019-06-10] MEDS: NIFEDIPINE XL 30 MG TABLET PO SCH (09:00)
[2019-06-10] MEDS: hydroCHLOROthiazide 25 MG TAB PO SCH (09:00)
[2019-06-10] MEDS ORDERED: AZITHROMYCIN 250 MG TAB PO SCH (09:00)
[2019-06-10] MEDS: VALSARTAN 160 MG TAB PO SCH (09:00)
[2019-06-10] MEDS ORDERED: POTASSIUM CL SA 10 MEQ TAB PO ONE ×2 (09:00→23:49)
[2019-06-10] MEDS ORDERED: CEFTRIAXONE 1 GM/NS 50 ML 1 GM/50 ML BAG IV SCH (09:00)
[2019-06-10] MEDS: HYDROCODONE/APAP 5/325 MG TAB PO PRN (09:48)
--- NOTE | 2019-06-10 10:40 | P.PN ---
Subjective Date of Service: 06/10/19 Primary Care Provider: Dr. Hurley; Pulmonary-Dr. Wright Chief Complaint: Left upper lobe pneumonia Subjective: Improving (Patient is doing better admitted with acute onset of fever chest discomfort shortness of breath diagnosed with left upper lobe pneumonia is doing better) Review of Systems General: Weakness Respiratory: Cough, Shortness of Breath Cardiovascular: Chest Pain Physical Examination - Vital Signs Temperature: 98.7 F Blood Pressure: 119/58 Pulse: 66 Respirations: 18 Pulse Ox (%): 91 - Physical Exam General: Alert, In no apparent distress, Oriented x3 Neck: Supple Respiratory: Crackles/rales (Crackles on the left side) Cardiovascular: No edema, Normal pulses - Studies Laboratory Data (last 24 hrs) 06/09/19 15:18: PT 14.7 H, INR 1.26 06/09/19 15:18: WBC 13.5 H, Hgb 11.4 L, Hct 33.9 L, Plt Count 233 06/09/19 15:18: Sodium 138, Potassium 3.8, BUN 13, Creatinine 0.85, Glucose 114 H, Magnesium 2.2, Total Bilirubin 0.8, AST 8 L, ALT 21, Alkaline Phosphatase 76 Microbiology Data (last 24 hrs): 06/09/19 14:35 Nasopharnyx Influenza Type A Antigen Screen - Final 06/09/19 14:35 Nasopharnyx Influenza Type B Antigen Screen - Final Assessment & Plan - Problems (Diagnosis) (1) Community acquired pneumonia Onset Date: 05/29/18 Current Visit: No Status: Acute Plan: Patient is 78 years of age admitted with acute community-acquired left upper lobe pneumonia small pleural effusion labs reviewed vital signs stable plan to check room air pulse ox ambulate possible discharge on oral levofloxacin today she has obstructive sleep apnea no prior history of pulmonary complaints Qualifiers: Laterality: left Discharge Plan: Home
--- NOTE | 2019-06-10 12:33 | RAD REPORT ---
EXAM DESCRIPTION: RAD - Chest Pa And Lat (2 Views) - 06/10/2019 11:51 am CLINICAL HISTORY: Follow up pneumonia COMPARISON: CT chest June 09 TECHNIQUE: PA and lateral views of the chest were obtained. FINDINGS: The lungs are slightly underinflated. Perihilar opacification and vascular engorgement see n. Finding does appear somewhat progressive from the prior day CT study. No cardiomegaly is present. Trachea is midline. No pleural effusion or pneumothorax seen. No acute bony finding noted. No aort ic abnormality. IMPRESSION: Central lung parenchymal opacification similar or progressive from the prior day CT stud y. Findings would be consistent with suspected pneumonia. Developing pulmonary edema is possible as well and patient can be monitored.
[2019-06-10] MEDS: LOPERAMIDE HCL 2 MG CAPSULE PO PRN ×2 (13:11→20:38)
--- NOTE | 2019-06-10 16:24 | EKG ---
Test Date: 2019-06-09 Test Time: 15:07:26 Telephone Clerk Telegraph Office: RV MEASUREMENT RESULTS: Intervals: Rate: 57 NH: 126 QRSD: 82 QT: 436 QTc: 424 [place]: P: 59 NH: 126 QRS: 62 T: 59 INTERPRETIVE STATEMENTS: Sinus bradycardia ST abnormality, possible digitalis effect Abnormal ECG Compared to ECG 05/26/2018 03:37:32 ST (T wave) deviation now present Sinus rhythm no longer present Electronically Signed On 06-10-19 16:22:38 RECEIVABLES SPECIALIST by Quique Rod
[2019-06-10 17:08] LABS: Urine Appearance CLEAR; Urine Bilirubin NEGATIVE (NEG); Urine Blood NEGATIVE (NEG); Urine Color YELLOW; Urine Glucose NEGATIVE (NEG); Urine Protein NEGATIVE (NEG); Urine Specific Gravity 1.015 (1.005-1.030); Urine Urobilinogen 0.2 mg/dL (0.2-1.0); Urine pH 6.5 (5.0-7.0)
[2019-06-10 17:11] LABS: Urine Microscopic Reflex ORDER UMIC
[2019-06-10 17:25] LABS: Urine Bacteria NONE SEEN /HPF (<20); Urine Culture Reflex Order NOT NEEDED; Urine RBC NONE SEEN /HPF (NONE SEEN)
[2019-06-10] MEDS: TRAZODONE 50 MG TABLET PO PRN (20:38)
[2019-06-11] MEDS: BENZONATATE 100 MG CAP PO PRN (00:35)
[2019-06-11] MEDS: carvediloL 25 MG TAB PO SCH ×2 (05:28→17:07)
[2019-06-11] MEDS ORDERED: ACETAMINOPHEN 325 MG/SUPP PR ONE (08:35)
[2019-06-11] MEDS: ENOXAPARIN 40 MG/0.4 ML SQ SCH (08:39)
[2019-06-11] MEDS: levoFLOXacin 500 MG TAB PO SCH (08:39)
[2019-06-11] MEDS: GUAIFENESIN 600 MG SA TAB PO SCH ×2 (08:39→20:23)
[2019-06-11] MEDS: DOCOSAHEXANOIC AC/EPA 1000 MG PO SCH (08:39)
[2019-06-11] MEDS: hydroCHLOROthiazide 25 MG TAB PO SCH (08:40)
[2019-06-11] MEDS: NIFEDIPINE XL 30 MG TABLET PO SCH (08:40)
[2019-06-11] MEDS: VALSARTAN 160 MG TAB PO SCH (08:40)
--- NOTE | 2019-06-11 13:43 | P.PN ---
Subjective Date of Service: 06/11/19 Primary Care Provider: Dr. Hurley; Pulmonary-Dr. Wright Chief Complaint: Left upper lobe pneumonia No major changes from yesterday. She reports occasional wheezing. She has been afebrile over the last 48 hrs. Physical Examination - Vital Signs Temperature: 98.1 F Blood Pressure: 132/63 Pulse: 71 Respirations: 20 Pulse Ox (%): 91 - Physical Exam General: Alert, In no apparent distress, Oriented x3 HEENT: Mucous membr. moist/pink Neck: Supple Respiratory: Normal air movement, Expiratory wheezes (Mild scattered wheezes) Cardiovascular: No edema, Regular rate/rhythm, Normal S1 S2 Gastrointestinal: Normal bowel sounds, Soft and benign, No tenderness Musculoskeletal: No swelling Integumentary: No rashes Neurological: Normal speech Assessment And Plan - Current Problems (Diagnosis) (1) Acute respiratory failure with hypoxia Current Visit: Yes Status: Acute (2) Community acquired pneumonia Onset Date: 05/29/18 Current Visit: No Status: Acute Qualifiers: Laterality: left (3) Hyperlipidemia Onset Date: 05/29/18 Current Visit: No Status: Acute (4) Hypertension Onset Date: 05/29/18 Current Visit: No Status: Acute - Plan Continue oral Levaquin, bronchodilators. Incentive spirometer Noted patient desaturated to 85% on room air with ambulation. Reassess oxygen status in a.m. Continue home hypertensives.
[2019-06-11] MEDS: TRAZODONE 50 MG TABLET PO PRN (20:28)
[2019-06-12] MEDS: carvediloL 25 MG TAB PO SCH (05:23)
[2019-06-12 06:10] LABS: BUN Blood Urea Nitrogen 8 mg/dL (7-18); Bicarbonate 29 mmol/L (21-32); Glucose Level 94 mg/dL (74-106); Potassium 3.6 mmol/L (3.5-5.1); Sodium Level 139 mmol/L (136-145)
[2019-06-12] MEDS: GUAIFENESIN 600 MG SA TAB PO SCH (08:23)
[2019-06-12] MEDS: DOCOSAHEXANOIC AC/EPA 1000 MG PO SCH (08:23)
[2019-06-12] MEDS: levoFLOXacin 500 MG TAB PO SCH (08:23)
[2019-06-12] MEDS: ENOXAPARIN 40 MG/0.4 ML SQ SCH (08:24)
[2019-06-12] MEDS: hydroCHLOROthiazide 25 MG TAB PO SCH (09:00)
[2019-06-12] MEDS: NIFEDIPINE XL 30 MG TABLET PO SCH (09:00)
[2019-06-12] MEDS ORDERED: POTASSIUM CL SA 10 MEQ TAB PO ONE (09:00)
[2019-06-12] MEDS: VALSARTAN 160 MG TAB PO SCH (09:00)
[2019-06-12] MEDS: HYDROCODONE/APAP 5/325 MG TAB PO PRN (10:05)
--- NOTE | 2019-06-12 10:51 | P.DS ---
Admission Date: 06/11/19 Discharge Date: 06/12/19 Primary Care Provider: Dr. Hurley; Pulmonary-Dr. Wright Disposition: ROUTINE DISCHARGE Discharge Condition: FAIR Reason for Admission: Left upper lobe pneumonia - Problems (1) Acute respiratory failure with hypoxia Current Visit: Yes Status: Acute (2) Community acquired pneumonia Onset Date: 05/29/18 Current Visit: No Status: Acute Qualifiers: Laterality: left (3) Hyperlipidemia Onset Date: 05/29/18 Current Visit: No Status: Acute (4) Hypertension Onset Date: 05/29/18 Current Visit: No Status: Acute Brief History of Present Illness: 78-year-old woman with a history of hypertension presented to the emergency department with a complaint of left-sided chest pain, cough and shortness of breath of 4 days duration. Patient reports sick contact with daughter who was also coughing. She also reported some fever and chills. In the ED, patient was noted to be dyspneic, and desaturated on room air. CT chest reported left upper lobe pneumonia. The patient was admitted for further management. Hospital Course: She was admitted to the medical floor and treated with bronchodilators, and IV Rocephin and Zithromax. She required oxygen at rest. Her clinical condition improved with treatment, the cough and shortness of breath significantly improved. She was weaned off oxygen to room air and antibiotics scaled down to oral Levaquin. Today patient ambulated without significant shortness of breath. Her oxygen saturation after ambulation was 97% on room air. She has been afebrile. She is deemed clinically stable for discharge. Since discharge with oral Levaquin to complete 7 days of treatment. Vital Signs/Physical Exam: Temp Pulse Resp BP Pulse Ox 97.7 F 92 H 18 114/47 L 91 06/12/19 08:00 06/12/19 09:00 06/12/19 10:05 06/12/19 09:15 06/12/19 10:05 General: Alert, In no apparent distress, Oriented x3 HEENT: Mucous membr. moist/pink Neck: JVD not distended Respiratory: Clear to auscultation bilaterally, Normal air movement Cardiovascular: Regular rate/rhythm, Normal S1 S2 Gastrointestinal: Normal bowel sounds, Soft and benign, No tenderness Musculoskeletal: No swelling Neurological: Normal speech, Normal strength at 5/5 x4 extr Laboratory Data at Discharge: WBC 13.9 K/uL (4.3-10.9) H 06/10/19 06:04 Hgb 10.7 g/dL (12.0-15.0) L 06/10/19 06:04 Hct 31.4 % (36.0-45.0) L 06/10/19 06:04 Plt Count 234 K/uL (152-406) 06/10/19 06:04 PT 14.7 SECONDS (9.5-12.5) H 06/09/19 15:18 INR 1.26 06/09/19 15:18 Sodium 139 mmol/L (136-145) 06/12/19 05:38 Potassium 3.6 mmol/L (3.5-5.1) 06/12/19 05:38 BUN 8 mg/dL (7-18) 06/12/19 05:38 Creatinine 0.52 mg/dL (0.55-1.3) L 06/12/19 05:38 Glucose 94 mg/dL (74-106) 06/12/19 05:38 Magnesium 2.0 mg/dL (1.8-2.4) 06/10/19 06:04 Total Bilirubin 0.8 mg/dL (0.2-1.0) 06/09/19 15:18 AST 8 U/L (15-37) L 06/09/19 15:18 ALT 21 U/L (12-78) 06/09/19 15:18 Alkaline Phosphatase 76 U/L (45-117) 06/09/19 15:18 Home Medications: Nifedipine [Nifedipine ER] 30 mg PO DAILY AFTER SUPPER 11/23/17 Trazodone [Desyrel*] 50 mg PO BEDTIME 11/23/17 carvediloL [Coreg*] 25 mg PO BID 11/23/17 Potassium Oral Tab [Klor-Con 10 mEq Tab*] 10 meq PO DAILY 06/09/19 levoFLOXacin [Levaquin*] 500 mg PO DAILY #7 tab 06/10/19 Benzonatate [Tessalon Perle*] 100 mg PO TID PRN #30 cap 06/12/19 Docosahexanoic AC/Epa [Fish Oil 1,000 MG*] 1,000 mg PO DAILY #30 cap 06/12/19 New Medications: Benzonatate [Tessalon Perle*] 100 mg PO TID PRN #30 cap PRN Reason: Cough Docosahexanoic AC/Epa [Fish Oil 1,000 MG*] 1,000 mg PO DAILY #30 cap levoFLOXacin [Levaquin*] 500 mg PO DAILY #7 tab Diet: Regular Activity: Ad ozzie Time spent managing pt's care (in minutes): 36
[2019-06-12 12:49] VITALS: BP 146/66; TEMP 97.1
[2019-06-12 13:25] VITALS: O2SAT 90
== END 2019-06-12 13:47 | disposition home or self-care (01) | DRG 193 ==
LOC: ER 13:58 → ERHOLD 19:37 → 2ND 20:52 → OBSVTOIN 06-11 13:37
PROVIDERS: ADMIT Family Medicine; ATTEND Internal Medicine
DX: J18.9 Pneumonia, unspecified organism (principal); J96.01 Acute respiratory failure with hypoxia; J90 Pleural effusion, not elsewhere classified; I10 Essential (primary) hypertension; E78.5 Hyperlipidemia, unspecified; G47.33 Obstructive sleep apnea (adult) (pediatric); K76.0 Fatty (change of) liver, not elsewhere classified; Z99.81 Dependence on supplemental oxygen
CPT/HCPCS: 36415; 71046; 71260; 74177; 80048; 80076; 81003; 81015; 83605; 83735; 83880; 84132; 84145; 84484; 85025; 85610; 87040; 87070; 87081; 87804; 93005; 94640; 96365; 96366; 96368; 99285; G0378; J0456; J0696; J1650; J2405; J7040; Q9967

== ENCOUNTER 2021-12-09 09:07 | Emergency (ER) | payer OTHER ==
--- OUTSIDE RECORDS SUMMARY | 2021-12-09 09:10 | XMS REPORT | Continuity of Care Document ---
:1940 Author Organization [facility] t Address [address] [place] [address] Care Team Providers Name Role Phone Shubham Attending Clinician Unavailable PAUL, A Attending Clinician Unavailable Libby MOROCHO Attending Clinician Unavailable Paul TEMPLE, A Attending Clinician Only, Test Attending Clinician Unavailable Doctor Unassigned, Name Attending Clinician Unavailable Pob, Lab Main Attending Clinician Unavailable Liz ADAMS Admitting Clinician Unavailable Paul TEMPLE, A Admitting Clinician Payers Payer Name Policy Type Policy Number Effective Date Expiration Date S ource [employer] MEDICARE ADV [id number] 2019 00:00:00 Problems This patient has no known problems. Allergies, Adverse Reactions, Alerts Allergy Allergy Status Severity Reaction(s) Onset Inactive Treating Comm ents Source Name Type Date Date Clinician PENICILL Drug Active Diarrhea 2019-0 Univer s INS Class 8-21 ity of 00:00: [place] 00 Medical Branch Penicill Propensi Active Diarrhea 2019-0 Univ ers ins ty to 8-21 ity of adverse 00:00: [place] reaction 00 Medical s Branch NO KNOWN Drug Active Univers ALLERGIE Class ity of S [facility] penicill Adverse Active Info Not Commo n in Reaction Available [facility] Social History Social Habit Start Date Stop Date Quantity Comments Source Sex Assigned At [facility] Medical Branch Exposure to Not sure [facility] SARS-CoV-2 (event) Medica l Branch Tobacco use and 2020-03-18 2020-03-18 Never used [facility] exposure 00:00:00 00:00:00 Medical [place] Smoking Status Start Date Stop Date Source Unknown if ever smoked [facility] [place] [facility] Never smoker [facility] Medical Branch Medications Ordered Filled Start Stop Current Ordering Indication Dosage Frequency Signature Comments Components Source Medication Medication Date Date Medication? Clinician (SIG) Name Name carvediloL 2020-0 Yes 25mg Take 25 mg U nivers 25 mg 9-23 by mouth ity of tablet 16:52: daily. [place] [address] Medical Branch KCL 20 mEq 2020-0 Yes 10meq Take 10 Uni vers tablet 9-23 mEq by ity of 16:52: mouth [place] 34 daily. Medical Branch traZODone 2020-0 Yes 50mg Take 50 mg Un maddy 50 mg 9-23 by mouth ity of tablet 16:52: at [place] 34 bedtime. Medical Branch icosapent 2019-0 Yes Take by Univ ers ethyl 9-23 mouth. ity of (VASCEPA 16:52: [place] ORAL) Medical Branch NIFEdipine 2019-0 Yes 30mg Take 30 mg U nivers ER 30 mg 9-23 by mouth ity of tablet 16:52: daily. [place] [address] Medical Branch valsartan-h 2019-0 Yes 1{tbl} Take 1 Un maddy ydrochlorot 9-23 tablet by ity of hiazide 16:52: mouth [place] 320-25 mg 34 daily. Medical per tablet Branch multivitami 2019-0 Yes Take by Un maddy n 9-23 mouth. ity of (MULTI-DAY 16:52: [place] ORAL) Medical Branch rosuvastati 2019-0 Yes 10mg Take 10 mg Univers n (CRESTOR) 9-23 by mouth ity of 10 mg 16:52: at [place] tablet 34 bedtime. Medical Branch ubidecareno 2019-0 Yes Take by Un maddy ne/vitamin 9-23 mouth. ity of E mixed 16:52: [place] (COQ10 SG 34 Medical 100 ORAL) Branch Magnesium 2019-0 Yes Take by Univ ers 250 mg Tab 9-23 mouth. ity of 16:52: [place] [address] Medical Branch KCL 10 mEq 2020-0 Yes 10meq Take 10 Uni vers tablet 9-23 mEq by ity of 16:52: mouth [place] 34 daily. Medical Branch calcium 2019-0 Yes Take by Univer s carbonate/v 9-23 mouth. ity of itamin D3 16:52: [place] (CALCIUM [address] [place] [address] 600 + D,3, Branch ORAL) water for 2020-0 Yes PRN, Univers irrigation 03-19 Starting ity o f irrigation 15:44: Tue [place] solution 03/19/20 at [facility] al 1044, Branch Until Discontinu ed, Routine, Intra-op sodium 2020-0 Yes PRN, Univers chloride 03-19 Starting ity of (NS) 15:43: Tue [place] injection 03/19/20 at [facility] [place] 1043, Branch Until Discontinu ed, Routine, Intra-op neomycin-po 2020-0 Yes PRN, Univer s lymyxin-dex 03-19 Starting ity of amethasone 15:43: Tue [place] (MAXITROL) 03/19/20 at [facility] ical 3.5 1043, Branch mg/g-10,000 Until unit/g-0.1 Discontinu % ed, ophthalmic Routine, ointment Intra-op Hyaluronida 2020-0 Yes PRN, Univer s se, Human 03-19 Starting ity of Recomb. 15:43: Tue [place] (HYLENEX) 03/19/20 at [facility] [place] injection 1043, Branch Until Discontinu ed, Routine, Intra-op gentamicin 2020-0 Yes PRN, Univers injection 03-19 Starting ity of 15:42: Tue03/19/20 at [facility] 1042, Branch Until Discontinu ed, SONJA, Intra-op eye block 2020-0 Yes PRN, Univers syringe 11 03-19 Starting ity o f mL 15:42: Tue [place] 03/19/20 at [facility] 1042, Branch Until Discontinu ed, Intra-op EPINEPHrine 2020-0 Yes PRN, Univer s 1:1,000 (1 03-19 Starting ity o f mg/mL) 15:41: Tue [place] (ADRENALIN) 00 03/19/20 at [place] injection 1041, Branch Until Discontinu ed, Routine, Intra-op DUOVISC 2020-0 Yes PRN, Univers (DUOVISC 03-19 Starting ity of VISCO 15:41: Tue [place] ELASTIC) 3 03/19/20 at [facility] ical %-4 %(0.5 1041, Branch mL) 1 % Until (0.55 mL) Discontinu intraocular ed, injection Routine, Intra-op dexamethaso 2020-0 Yes PRN, Univer s ne 03-19 Starting ity of (DECADRON 15:40: Tue [place] PHOSPHATE) 00 03/19/20 at [facility] ical injection 1040, Branch Until Discontinu ed, Routine, Intra-op ceFAZolin 2020-0 Yes PRN, Univers (ANCEF) 03-19 Starting ity of injection 15:40: Tue [place] 00 03/19/20 at Medical 1040, Branch Until Discontinu ed, SONJA, Intra-op carbachoL 2020-0 Yes PRN, Univers (MIOSTAT) 03-19 Starting ity of 0.01 % 15:39: Tue [place] intraocular 00 03/19/20 at Ri dical injection 1039, Branch Until Discontinu ed, Routine, Intra-op balanced 2020-0 Yes PRN, Univers salt irrig 03-19 Starting ity o f soln comb1 15:39: Tue (BSS PLUS) 00 03/19/20 at [facility] ica ophthalmic 1039, [place] solution Until 500 mL bag Discontinu ed, Routine, Intra-op lactated 2020-0 2020- No 1000mL at [address] [place] [address] rs ringers IV 03-19 mL/hr, ity of infusion 14:15: 14:14 1,000 mL, [place] 1,000 mL 00 :00 IV Medical Infusion, [place] ONCE, 1 dose, 03/19/20 at 0915, Routine, DSU Pre-op mydriatic 2020-0 2020- No .5mL 0.5 mL, [facility] ers #5 03-19 Left Eye, ity of ophthalmic 14:00: 14:14 ONCE, 1 [place] solution 00 :00 dose, Tue Medica l 0.5 mL 03/19/20 at [place] syringe 0915, Routine carvediloL 2020-0 Yes 25mg Take 25 mg U nivers 25 mg 03-05 by mouth ity of tablet 17:25: daily. [place] [facility] Branch KCL 20 mEq 2020-0 Yes 10meq Take 10 Uni vers tablet 03-05 mEq by ity of 17:25: mouth daily. Medical Branch traZODone 2019-0 Yes 50mg Take 50 mg Un maddy 50 mg 03-05 by mouth ity of tablet 17:25: at 09 bedtime. Medical Branch icosapent 2020-0 Yes Take by [facility] ers ethyl 03-05 mouth. ity of (VASCEPA 17:25: [place] ORAL) 09 Medical Branch NIFEdipine 2020-0 Yes 30mg Take 30 mg U nivers ER 30 mg 03-05 by mouth ity of tablet 17:25: daily. Medical Branch valsartan-h 2020-0 Yes 1{tbl} Take 1 Un maddy ydrochlorot 03-05 tablet by ity of hiazide 17:25: mouth [place] 320-25 mg 09 daily. Medical per tablet Branch multivitami 2020-0 Yes Take by Un maddy n - mouth. ity of (MULTI-DAY 17:25: [place] ORAL) Medical Branch rosuvastati 2020-0 Yes 10mg Take 10 mg Univers n (CRESTOR) 03-05 by mouth ity of 10 mg 17:25: at [place] tablet 09 bedtime. Medical Branch ubidecareno 2020-0 Yes Take by Un maddy ne/vitamin 03-05 mouth. ity of E mixed 17:25: (COQ10 SG 09 Medical 100 ORAL) Branch Magnesium 2020-0 Yes Take by Univ ers 250 mg Tab 03-05 mouth. ity of 17:25: Medical Branch KCL 10 mEq 2020-0 Yes 10meq Take 10 Uni vers tablet 9-09 mEq by ity of 17:25: mouth [place] 09 daily. Medical Branch calcium 2020-0 Yes Take by Univer s carbonate/v 03-05 mouth. ity of itamin D3 17:25: (CALCIUM 09 Medical 600 + D,3, Branch ORAL) carvediloL 2020-0 Yes 25mg Take 25 mg U nivers 25 mg 03-05 by mouth ity of tablet 17:25: daily. Medical Branch KCL 20 mEq 2020-0 Yes 10meq Take 10 Uni vers tablet 9-09 mEq by ity of 17:25: mouth [place] 09 daily. Medical Branch traZODone 2020-0 Yes 50mg Take 50 mg Un maddy 50 mg 03-05 by mouth ity of tablet 17:25: at [place] 09 bedtime. Medical Branch icosapent 2020-0 Yes Take by Univ ers ethyl - mouth. ity of (VASCEPA 17:25: [place] ORAL) Medical Branch NIFEdipine 2020-0 Yes 30mg Take 30 mg U nivers ER 30 mg 03-05 by mouth ity of tablet 17:25: daily. Medical Branch valsartan-h 2020-0 Yes 1{tbl} Take 1 Un maddy ydrochlorot - tablet by ity of hiazide 17:25: mouth [place] 320-25 mg 09 daily. Medical per tablet Branch multivitami 2020-0 Yes Take by Un maddy n 9- mouth. ity of (MULTI-DAY 17:25: [place] ORAL) Medical Branch rosuvastati 2020-0 Yes 10mg Take 10 mg Univers n (CRESTOR) 03-05 by mouth ity of 10 mg 17:25: at [place] tablet 09 bedtime. Medical Branch ubidecareno 2020-0 Yes Take by Un maddy ne/vitamin - mouth. ity of E mixed 17:25: (COQ10 SG Medical 100 ORAL) Branch Magnesium 2020-0 Yes Take by Univ ers 250 mg Tab 03-05 mouth. ity of 17:25: [place] Medical Branch KCL 10 mEq 2020-0 Yes 10meq Take 10 Uni vers tablet 9-09 mEq by ity of 17:25: mouth [place] 09 daily. Medical Branch calcium 2020-0 Yes [facility]/v 03-05 mouth. ity of itamin D3 17:25: [place] (CALCIUM Medical 600 + D,3, Branch ORAL) carvediloL 2020-0 Yes 25mg Take 25 mg U nivers 25 mg 03-05 by mouth ity of tablet 17:25: daily. Medical Branch KCL 20 mEq 2019-0 Yes 10meq Take 10 Uni vers tablet 9-09 mEq by ity of 17:25: mouth [place] 09 daily. Medical Branch traZODone 2020-0 Yes 50mg Take 50 mg Un maddy 50 mg 03-05 by mouth ity of tablet 17:25: at [place] 09 bedtime. Medical Branch icosapent 2020-0 Yes Take by Univ ers ethyl 03-05 mouth. ity of (VASCEPA 17:25: [place] ORAL) Medical Branch NIFEdipine 2020-0 Yes 30mg Take 30 mg U nivers ER 30 mg 03-05 by mouth ity of tablet 17:25: daily. Medical Branch valsartan-h 2020-0 Yes 1{tbl} Take 1 Un maddy ydrochlorot - tablet by ity of hiazide 17:25: mouth [place] 320-25 mg 09 daily. Medical per tablet Branch multivitami 2020-0 Yes Take by Un maddy n 9-09 mouth. ity of (MULTI-DAY 17:25: [place] ORAL) 09 Medical Branch rosuvastati 2020-0 Yes 10mg Take 10 mg Univers n (CRESTOR) 03-05 by mouth ity of 10 mg 17:25: at [place] tablet bedtime. Medical Branch ubidecareno 2020-0 Yes Take by Un maddy ne/vitamin 03-05 mouth. ity of E mixed 17:25: [place] (COQ10 SG Medical 100 ORAL) Branch Magnesium 2020-0 Yes Take by Univ ers 250 mg Tab 03-05 mouth. ity of 17:25: [place] 09 Medical Branch KCL 10 mEq 2020-0 Yes 10meq Take 10 Uni vers tablet 03-05 mEq by ity of 17:25: mouth [place] daily. Medical Branch calcium 2020-0 Yes Take by Univer s carbonate/v 03-05 mouth. ity of itamin D3 17:25: [place] (CALCIUM Medical 600 + D,3, Branch ORAL) lactated 2019-0 Yes 1000mL at 75 Univer s ringers IV 03-05 mL/hr, ity of infusion 17:15: 1,000 mL, [place] 1,000 mL 00 IV Medical Infusion, Branch CONTINUOUS , Starting Tue03/05/20 at 1215, Until Discontinu ed, Routine, PACU water for 2019-0 Yes PRN, Univers irrigation 03-05 Starting ity o f irrigation 16:37: Tue03/05/20 [place] solution 00 at 1137, Medical Until [place] Discontinu ed, Routine, Intra-op sodium 2020-0 Yes PRN, Univers chloride 03-05 Starting ity of (NS) 16:36: Tue03/05/20 [place] injection 00 at 1136, Medica l Until Branch Discontinu ed, Routine, Intra-op neomycin-po 2020-0 Yes PRN, Univer s lymyxin-dex 03-05 Starting ity of amethasone 16:36: Tue03/05/20 [place] (MAXITROL) 00 at 1136, Medic al 3.5 Until [place] mg/g-10,000 Discontinu unit/g-0.1 ed, % Routine, ophthalmic Intra-op ointment Hyaluronida 2020-0 Yes PRN, Univer s se, Human 03-05 Starting ity of Recomb. 16:35: Tue03/05/20 [place] (HYLENEX) 00 at 1135, Medica l injection Until Branch Discontinu ed, Routine, Intra-op gentamicin 2020-0 Yes PRN, Univers injection 03-05 Starting ity of 16:35: Tue03/05/20 [place] 00 at 1135, Medical Until Branch Discontinu ed, SONJA, Intra-op eye block 2020-0 Yes PRN, Univers syringe 11 03-05 Starting ity o f mL 16:35: Tue03/05/20 [place] 00 at 1135, Medical Until Branch Discontinu ed, Intra-op EPINEPHrine 2020-0 Yes PRN, Univer s 1:1,000 (1 03-05 Starting ity o f mg/mL) 16:35: Tue03/05/20 [place] (ADRENALIN) 00 at 1135, Medi chris injection Until Branch Discontinu ed, Routine, Intra-op DUOVISC 2020-0 Yes PRN, Univers (DUOVISC 03-05 Starting ity of VISCO 16:34: Tue03/05/20 [place] ELASTIC) 3 00 at 1134, Medic al %-4 %(0.5 Until Branch mL) 1 % Discontinu (0.55 mL) ed, intraocular Routine, injection Intra-op dexamethaso 2020-0 Yes PRN, Univer s ne 03-05 Starting ity of (DECADRON 16:34: Tue03/05/20 [place] PHOSPHATE) 00 at 1134, Medic al injection Until Branch Discontinu ed, Routine, Intra-op ceFAZolin 2020-0 Yes PRN, Univers (ANCEF) 03-05 Starting ity of injection 16:34: Tue03/05/20 [place] 00 at 1134, Medical Until Branch Discontinu ed, SONJA, Intra-op carbachoL 2020-0 Yes PRN, Univers (MIOSTAT) 03-05 Starting ity of 0.01 % 16:34: Tue03/05/20 [place] intraocular 00 at 1134, Medi chris injection Until Branch Discontinu ed, Routine, Intra-op balanced 2020-0 Yes PRN, Univers salt irrig 03-05 Starting ity o f soln comb1 16:33: Tue03/05/20 [place] (BSS PLUS) 00 at 1133, Medic al ophthalmic Until Branch solution Discontinu 500 mL bag ed, Routine, Intra-op mydriatic 2020-0 2020- No .5mL 0.5 mL, Univ ers #5 03-05 Right Eye, ity of ophthalmic 14:00: 13:56 ONCE, 1 [place] solution 00 :00 dose, Wed Medica l 0.5 mL 03/05/20 at Branch syringe 0900, Routine lactated 2020-0 2020- No 1000mL at 20 [facility] rs ringers IV 03-0509 mL/hr, ity of infusion 14:00: 13:56 1,000 mL, [place] 1,000 mL 00 :00 IV Medical Infusion, Branch ONCE, 1 dose, 03/05/20 at 0900, Routine, DSU Pre-op carvediloL 2020-0 Yes 25mg Take 25 mg U nivers 25 mg 9-04 by mouth ity of tablet 20:46: daily. [place] [address] Medical Branch KCL 20 mEq 2020-0 Yes 10meq Take 10 Uni vers tablet 9-04 mEq by ity of 20:46: mouth [place] 50 daily. Medical Branch traZODone 2020-0 Yes 50mg Take 50 mg Un maddy 50 mg 9-04 by mouth ity of tablet 20:46: at [place] 50 bedtime. Medical Branch icosapent 2020-0 Yes Take by [facility] ers ethyl 9-04 mouth. ity of (VASCEPA 20:46: [place] ORAL) 50 Medical Branch NIFEdipine 2020-0 Yes 30mg Take 30 mg U nivers ER 30 mg 04 by mouth ity of tablet 20:46: daily. [place] [address] Medical Branch valsartan-h 2020-0 Yes 1{tbl} Take 1 Un [place] ydrochlorot -04 tablet by ity of hiazide 20:46: mouth [place] 320-25 mg 50 daily. Medical per tablet Branch multivitami 2020-0 Yes Take by Un maddy n 9-04 mouth. ity of (MULTI-DAY 20:46: [place] ORAL) 50 Medical Branch rosuvastati 2020-0 Yes 10mg Take 10 mg Univers n (CRESTOR) 9-04 by mouth ity of 10 mg 20:46: at [place] tablet 50 bedtime. Medical Branch ubidecareno 2020-0 Yes Take by Un maddy ne/vitamin 9-04 mouth. ity of E mixed 20:46: [place] (COQ10 SG 50 Medical 100 ORAL) Branch Magnesium 2020-0 Yes Take by [facility] ers 250 mg Tab 9-04 mouth. ity of 20:46: [place] [address] Medical Branch KCL 10 mEq 2020-0 Yes 10meq Take 10 Uni vers tablet 9-04 mEq by ity of 20:46: mouth [place] 50 daily. Medical Branch calcium 2019-0 Yes Take by Univer s carbonate/v 9-04 mouth. ity of itamin D3 20:46: [place] (CALCIUM 50 Medical 600 + D,3, Branch ORAL) carvediloL 2019-0 Yes 25mg Take 25 mg U nivers 25 mg 9-04 by mouth ity of tablet 20:46: daily. [place] [address] Medical Branch KCL 20 mEq 2019-0 Yes 10meq Take 10 Uni vers tablet 9-04 mEq by ity of 20:46: mouth [place] 50 daily. Medical Branch traZODone 2019-0 Yes 50mg Take 50 mg Un maddy 50 mg 9-04 by mouth ity of tablet 20:46: at [place] 50 bedtime. Medical Branch icosapent 2019-0 Yes Take by [facility] ers ethyl 9-04 mouth. ity of (VASCEPA 20:46: [place] ORAL) 50 Medical Branch NIFEdipine 2019-0 Yes 30mg Take 30 mg U nivers ER 30 mg 9-04 by mouth ity of tablet 20:46: daily. [place] [address] Medical Branch valsartan-h 2019-0 Yes 1{tbl} Take 1 Un [place]addy ydrochlorot 9-04 tablet by ity of hiazide 20:46: mouth [place] 320-25 mg 50 daily. Medical per tablet Branch multivitami 2019-0 Yes Take by Un maddy n 9-04 mouth. ity of (MULTI-DAY 20:46: [place] ORAL) 50 Medical Branch rosuvastati 2020-0 Yes 10mg Take 10 mg Univers n (CRESTOR) 9-04 by mouth ity of 10 mg 20:46: at [place] tablet 50 bedtime. Medical Branch ubidecareno 2019-0 Yes Take by Un maddy ne/vitamin 9-04 mouth. ity of E mixed 20:46: [place] (COQ10 SG 50 Medical 100 ORAL) Branch Magnesium 2019-0 Yes Take by Univ ers 250 mg Tab 9-04 mouth. ity of 20:46: [place] [address] Medical Branch KCL 10 mEq 2019-0 Yes 10meq Take 10 Uni vers tablet 9-04 mEq by ity of 20:46: mouth [place] 50 daily. Medical Branch calcium 2020-0 Yes Take by Univer s carbonate/v 9-04 mouth. ity of itamin D3 20:46: [place] (CALCIUM 50 Medical 600 + D,3, Branch ORAL) carvediloL 2020-0 Yes 25mg Take 25 mg U nivers 25 mg 9-04 by mouth ity of tablet 20:46: daily. [place] 50 Medical Branch KCL 20 mEq 2020-0 Yes 10meq Take 10 Uni vers tablet 9-04 mEq by ity of 20:46: mouth [place] 50 daily. Medical Branch traZODone 2020-0 Yes 50mg Take 50 mg Un maddy 50 mg 9-04 by mouth ity of tablet 20:46: at [place] 50 bedtime. Medical Branch icosapent 2020-0 Yes Take by Univ ers ethyl 9-04 mouth. ity of (VASCEPA 20:46: [place] ORAL) 50 Medical Branch NIFEdipine 2020-0 Yes 30mg Take 30 mg U nivers ER 30 mg 9-04 by mouth ity of tablet 20:46: daily. [place] 50 Medical Branch valsartan-h 2020-0 Yes 1{tbl} Take 1 Un [place]addy ydrochlorot 9-04 tablet by ity of hiazide 20:46: mouth [place] 320-25 mg 50 daily. Medical per tablet Branch multivitami 2020-0 Yes Take by Un maddy n 9-04 mouth. ity of (MULTI-DAY 20:46: [place] ORAL) 50 Medical Branch rosuvastati 2020-0 Yes 10mg Take 10 mg Univers n (CRESTOR) 9-04 by mouth ity of 10 mg 20:46: at [place] tablet 50 bedtime. Medical Branch ubidecareno 2020-0 Yes Take by Un maddy ne/vitamin 9-04 mouth. ity of E mixed 20:46: [place] (COQ10 SG 50 Medical 100 ORAL) Branch Magnesium 2020-0 Yes Take by Univ ers 250 mg Tab 9-04 mouth. ity of 20:46: [place] 50 Medical Branch KCL 10 mEq 2020-0 Yes 10meq Take 10 Uni vers tablet 9-04 mEq by ity of 20:46: mouth [place] 50 daily. Medical Branch calcium 2020-0 Yes Take by Univer s carbonate/v 9-04 mouth. ity of itamin D3 20:46: [place] (CALCIUM 50 Medical 600 + D,3, Branch ORAL) Cefdinir Cefdinir 2020- No Loulou as Com mon 01-17 Dario [facility] 00:00: 00:00 - [facility]I 00 :00 [facility] Vital Signs Vital Name Observation Time Observation Value Comments Source Systolic blood 2020-03-19 16:43:00 110 mm[Hg] Univer sity of pressure [place] [facility] Diastolic blood 2020-03-19 16:43:00 55 mm[Hg] Unive rsity of pressure [place] [facility] Heart rate 2020-03-19 16:43:00 66 /min [facility] [place] [facility] Respiratory rate 2020-03-19 16:43:00 22 /min Univ ersity of [facility] Branch Oxygen saturation in 2020-03-19 16:43:00 94 /min University of Arterial blood by [place] [employer] chris Pulse oximetry Branch Body temperature 2020-03-19 16:23:00 36.28 Diana Univ ersity [facility] [place] [facility] Body height 2020-03-18 18:00:00 152.4 cm [facility] [place] [facility] Body weight 2020-03-18 18:00:00 79.379 kg [facility] [place] [facility] BMI 2020-03-18 18:00:00 34.18 kg/m2 [facility] [place] [facility] Systolic blood 2020-03-05 17:00:00 118 mm[Hg] Univer sity of pressure [place] [facility] Diastolic blood 2020-03-05 17:00:00 42 mm[Hg] Unive rsity of pressure [place] [facility] Heart rate 2020-03-05 17:00:00 79 /min [facility] ty [facility] [place] [facility] Oxygen saturation in 2020-03-05 17:00:00 95 /min University of Arterial blood by [place] [employer] chris Pulse oximetry Branch Respiratory rate 2020-03-05 16:55:00 16 /min Univ ersity of [place] [facility] Body temperature 2020-03-05 16:50:00 36.39 Diana Univ [facility] [place] [facility] Body weight 2020-02-29 20:30:00 79.379 kg [facility] [place] [facility] BMI 2020-02-29 20:30:00 34.18 kg/m2 [facility] [place] [facility] Body height 2020-02-29 20:30:00 152.4 cm [facility] [place] [facility] Procedures Procedure Date / Time Performed Performing Clinician [facility] e CONSENT/REFUSAL FOR 2020-03-18 14:46:04 Doctor Unassigned, No [facility] [place] DIAGNOSIS AND Name Medical Branch TREATMENT ASSIGNMENT OF BENEFITS 2020-03-18 14:45:49 Doctor Unassigned, No [facility] CONSENT/REFUSAL FOR 2020-03-18 14:45:33 Doctor [facility]assigned, No [facility] Medical Branch TREATMENT ASSIGNMENT OF BENEFITS 2020-03-18 14:45:08 Doctor Unassigned, No [facility] Branch COVID-19 (ID NOW RAPID 2020-03-04 14:18:00 [facility]dish Adams [facility] Medical Branch ASSIGNMENT OF BENEFITS 2020-03-04 13:35:18 Doctor Unassigned, No [facility] COVID-19 (ID NOW RAPID 2020-02-19 13:47:00 [facility] Medical Branch COMP. METABOLIC PANEL 2020-02-11 17:55:00 Jagdish Adams [facility] ([id number]) Medical Branch CBC WITH DIFF 2020-02-11 17:55:00 Jagdish Adams [facility] Medical Branch ASSIGNMENT OF BENEFITS 2020-02-11 17:26:52 Doctor Unassigned, No [facility] Encounters Start End Encounter Admission Attending Care Care Encounter Source Date/Time Date/Time Type Type Clinicians Facility Department ID 2021-08-31 [facility] [id number] Common 14:13:00 [facility] 2021-07-22 Outpatient [place], [facility] [id number] Common 14:36:49 Patito [facility] 2021-07-22 Outpatient [place], ST[facility] [id number] Common 14:35:47 Patito [facility] 2021-07-22 Outpatient [place], ST[facility] [id number] Common 14:18:50 [place] [address] [facility] 2021-07-22 Outpatient [place], STLC [facility] [id number] 11:14:21 [place] [address] [facility] 2021-07-22 Outpatient Mill[place], STLMLC STLMLC [id number] Common 11:09:35 [place] [address] [facility] 2021-04-24 Outpatient Srinivasan ADAMS [facility] [id number] Univers 17:56:10 [facility] 2021-04-24 [id number] Univers 14:36:00 [facility] 2021-04-24 [facility] [id number] Univers 12:51:20 [facility] 2021-10-27 2021-10-27 ambulatory STLMLC STLMLC [id number] Common 00:00:00 00:00:00 [facility] 2021-10-20 2021-10-20 ambulatory STLMLC STLMLC [id number] Common 00:00:00 00:00:00 [facility] 2021-08-31 2021-08-31 ambulatory STLMLC STLMLC [id number] Common 00:00:00 00:00:00 [facility] 2021-07-07 2021-07-07 ambulatory STLMLC STLMLC [id number] Common 00:00:00 00:00:00 [facility] 2021-05-12 2021-05-12 ambulatory STLMLC STLMLC [id number] Common 00:00:00 00:00:00 [facility] 2020-10-24 2020-10-24 Outpatient STLMLC STLMLC [id number] Common 00:00:00 00:00:00 [facility] 2020-10-08 2020-10-08 Outpatient Srinivasan [facility] [id number] Univers 10:20:00 10:20:00 [facility] 2020-09-18 2020-09-18 Outpatient Srinivasan [facility] [id number] Univers 10:20:00 10:20:00 [facility] 2020-09-17 2020-09-17 Outpatient Srinivasan [facility] [id number] Univers 15:50:00 15:50:00 [facility] 2020-04-24 2020-04-24 Outpatient STLMLC STLMLC [id number] Common 00:00:00 00:00:00 [facility] 2020-03-19 2020-03-19 [facility] [id number] Univers 08:49:00 11:52:00 Encounter Jagdish Gar [id number] ity of [place] [id number] [place] [facility] [id number] [address] 2020-03-18 2020-03-18 Laboratory Only, Adc Test [facility] [facility] 1.2.840. 114 [id number] Univers 09:51:29 10:06:29 Only Jagdish Adams 350.1.13.1 0 [place] [id number] [address] 2020-03-18 2020-03-18 Outpatient R [facility] [id number] Univers 09:45:00 09:45:00 [id number] ity [facility] 2020-03-18 2020-03-18 [facility] [id number] Univers 09:45:00 09:45:00 [facility]05 2020-03-05 [facility] [id number] Univers 08:33:00 12:20:00 Encounter Jagdish Gar 350.1.13.10 [place] [phone] [address] 2020-03-04 2020-03-04 Laboratory Only, Adc Test [facility] 1.2.840. 114 [id number] Univers 08:39:39 12:08:39 Only Jagdish Adams 350.1.13.1 0 [place] [id number] [address] 2020-03-04 2020-03-04 Outpatient R [facility] [id number] Univers 09:30:00 09:30:00 [id number] ity [facility] 2020-03-04 2020-03-04 Outpatient R PAUL [facility] [id number] Univers 08:45:00 08:45:00 JAGDISH ity [facility] 2020-03-04 2020-03-04 Orders Doctor MERVAT 1.2.840.114 [id number] Univers 00:00:00 00:00:00 Only Unassigned, MARTIN 350.1.13.10 ity of [place] [facility] 4.2.7.2.686 [place] [id number] [address] 2020-02-19 2020-02-19 Laboratory Only, Adc Test [facility] 1.2.840. 114 [id number] Univers 08:36:16 08:51:16 Only Jagdish Adams 350.1.13.1 0 [place] [id number] [address] 2020-02-19 2020-02-19 Outpatient R [facility] [id number] Univers 08:45:00 08:45:00 [id number] ity [facility] 2020-02-19 2020-02-19 Outpatient R [facility] [id number] Univers 08:45:00 08:45:00 ity of [facility] 2020-02-11 2020-02-11 Outpatient R PAUL [facility] [id number] Univers 12:45:00 12:45:00 JAGDISH castillo [facility] 2020-02-11 2020-02-11 Case Finisher Zuri, Adc Lab Main [facility] 1.2.8 40.114 [id number] Univers 12:25:14 12:40:14 Visit Jagdish Adams 350.1.13.1 0 [place] [facility] [phone] [address] 2020-02-11 2020-02-11 Orders Doctor MERVAT 1.2.840.114 [id number] Univers 00:00:00 00:00:00 Only Unassigned, MARTIN 350.1.13.10 ity of [place] [facility] 4.2.7.2.686 [place] [id number] [address] 2020-01-18 2020-01-18 Out[facility] 31 [id number] Common 09:37:00 09:37:00 t Specialty/U Sp ame Specialty rology - [facility] 2019-10-25 2019-10-25 Outpatient Megan Guzmant 29 [id number] Common 10:00:00 10:00:00 t Specialty/U Sp ame Specialty rology - [facility] 2019-07-27 2019-07-27 Outpatient Megan Guzmant [id number] Common 14:15:00 14:15:00 t Specialty/U Sp ame Specialty rology - [facility] 2019-07-23 2019-07-23 Outpatient Megan Guzmant 29 [id number] Common 15:34:00 15:34:00 t Specialty/U Sp ame Specialty rology - [facility] 2019-05-03 2019-05-03 Outpatient Megan Guzmant 27 [id number] Common 09:30:00 09:30:00 t Specialty/U Sp ame Specialty rology - [facility] 2019-02-12 2019-02-12 Outpatient Megan Guzmant 27 [id number] Common 11:00:00 11:00:00 t Specialty/U Sp ame Specialty rology - [facility] 2018-11-01 2018-11-01 Outpatient Megan Guzmant 25 [id number] Common 11:15:00 11:15:00 t Specialty/U Sp ame Specialty rology - [facility] 2018-10-30 2018-10-30 Outpatient Megan Guzmant 25 [id number] Common 11:00:00 11:00:00 t Specialty/U Sp ame Specialty rology - [facility] 2018-10-24 2018-10-24 Outpatient Megan Guzmant [id number] Common 11:00:00 11:00:00 t Specialty/U Sp ame Specialty rology - [facility] 2018-09-26 2018-09-26 Outpatient Megan Guzmant 24 [id number] Common 08:00:00 08:00:00 t Bone Bone [facility] Sp[facility] t [facility] - [facility] 2018-08-01 2018-08-01 Outpatient Megan Cunningham 22 [id number] Common 08:00:00 08:00:00 t Bone Bone and Spiri t and Joint Joint - [facility] 2018-02-28 2018-02-28 Outpatient Megan Guzmant 14 [id number] Common 08:00:00 08:00:00 t Bone Bone and Spiri t and Joint Joint - [facility] 2018-01-19 2018-01-19 Outpatient Megan Guzmant 14 [id number] Common 08:30:00 08:30:00 t Bone Bone and Spiri t and Joint Joint - [facility] Results Test Description Test Time Test Comments Results Result Comments Source COVID-19 (ID NOW RAPID TESTING) 2020-03-04 15:25:00 Test Item Value Reference Range Interpretation Comme nts SARS-CoV-2 Rapid ID NOW (test code Not Detected Not Detected = 58218-6) SHADI (test code = SHADI) ID NOW COVID-19 Assay is an isothermal nucleic acid amplification test intended for the qualitative detection of nucleic acid from SARS-CoV-2 viral RNA in nasopharyngeal (INTELLIGENCE CLERK) specimens. It is used under Emergency Use Authorization (EUA) by FDA. The limit of detection (LOD) of the assay is 125 Genome Equivalents/mL. A positive result is indicative of the presence of SARS-CoV-2 RNA. ?Clinical correlation with patient history and other diagnostic information is necessary to determine patient infection status. A negative (Not Detected) result does not preclude SARS-CoV-2 infection. In patients with clinical symptoms and other tests that are consistent with SARS-CoV-2 infection, negative results should be treated as presumptive negative and a new specimen should be tested with alternative PCR molecular test. Invalid: Please collect a new specimen for repeat patient testing if clinically indicated. Lab Interpretation (test code = Normal 75045-9) [facility]04 15:25:00 Test Item Value Reference Range Interpretation Comments SARS-CoV-2 Rapid ID NOW Not Detected Not Detected (test code = 24165-6) SHADI (test code = SHADI) ID NOW COVID-19 Assay is an isothermal nucleic acid amplification test intended for the qualitative detection of nucleic acid from SARS-CoV-2 viral RNA in nasopharyngeal (INTELLIGENCE CLERK) specimens. It is used under Emergency Use Authorization (EUA) by FDA. The limit of detection (LOD) of the assay is 125 Genome Equivalents/mL. A positive result is indicative of the presence of SARS-CoV-2 RNA. ?Clinical correlation with patient history and other diagnostic information is necessary to determine patient infection status. A negative (Not Detected) result does not preclude SARS-CoV-2 infection. In patients with clinical symptoms and other tests that are consistent with SARS-CoV-2 infection, negative results should be treated as presumptive negative and a new specimen should be tested with alternative PCR molecular test. Invalid: Please collect a new specimen for repeat patient testing if clinically indicated. Lab Interpretation Normal (test code = 88945-4) [facility]2020-02-19 14:47:00 Test Item Value Reference Range Interpretation Comments SARS-CoV-2 Rapid ID NOW Not Detected Not Detected (test code = 92368-8) SHADI (test code = SHADI) ID NOW COVID-19 Assay is an isothermal nucleic acid amplification test intended for the qualitative detection of nucleic acid from SARS-CoV-2 viral RNA in nasopharyngeal (INTELLIGENCE CLERK) specimens. It is used under Emergency Use Authorization (EUA) by FDA. The limit of detection (LOD) of the assay is 125 Genome Equivalents/mL. A positive result is indicative of the presence of SARS-CoV-2 RNA. ?Clinical correlation with patient history and other diagnostic information is necessary to determine patient infection status. A negative (Not Detected) result does not preclude SARS-CoV-2 infection. In patients with clinical symptoms and other tests that are consistent with SARS-CoV-2 infection, negative results should be treated as presumptive negative and a new specimen should be tested with alternative PCR molecular test. Invalid: Please collect a new specimen for repeat patient testing if clinically indicated. Lab Interpretation Normal (test code = 94224-2) [facility] WITH [id number] 22:05:00 Test Item Value Reference Range Interpretation Comments WBC (test code = See_Comment [Automated 4990-2) message] The sy stem which generated this result transmitted reference range : 4.30 - 11.10 10*3/?L. The reference range was not used to interpret this result as normal/abnormal . RBC (test code = See_Comment [Automated 789-8) message] The sy stem which generated this result transmitted reference range : 3.93 - 5.25 10*6/?L. The reference range was not used to interpret this result as normal/abnormal . HGB (test code = 13.7 g/dL 11.6-15 718-7) HCT (test code = 43.3 % 35.7-45.2 4544-3) MCV (test code = 91.2 fL 80.6-95.5 787-2) MCH (test code = 28.8 pg 25.9-32.8 785-6) MCHC (test code = 31.6 g/dL 31.6-35.1 786-4) RDW-SD (test code = 48.7 fL 39-49.9 66354-3) RDW-CV (test code = 14.6 % 12-15.5 788-0) PLT (test code = See_Comment [Automated 777-3) message] The sy stem which generated this result transmitted reference range : 166 - 358 10*3/ ?L. The reference r kary was not used to interpret this result as normal/abnormal . MPV (test code = 9.3 fL 9.5-12.9 L 08458-6) NRBC/100 WBC (test See_Comment [Automat ed code = 4747765288) message] The system which generated this result transmitted reference range : 0.0 - 10.0 /100 WBCs. The refer ence range was not u sed to interpret th is result as normal/abnormal . NRBC x10^3 (test code <0.01 See_Comment [Auto mated = 4950119087) message] The s ystem which generated this result transmitted reference range : 10*3/?L. The reference range was not used to interpret this result as normal/abnormal . GRAN MAT (NEUT) % 39.0 % (test code = 770-8) IMM GRAN % (test code 0.20 % = 3174595298) LYMPH % (test code = 49.2 % 736-9) MONO % (test code = 7.7 % 5905-5) EOS % (test code = 3.4 % 713-8) BASO % (test code = 0.5 % 706-2) GRAN MAT x10^3(ANC) 3.79 10*3/uL 1.88-7.09 (test code = 7376423030) IMM GRAN x10^3 (test <0.03 0-0.06 code = 3988162189) LYMPH x10^3 (test code 4.78 10*3/uL 1.32-3.29 H = 731-0) MONO x10^3 (test code 0.75 10*3/uL 0.33-0.92 = 742-7) EOS x10^3 (test code = 0.33 10*3/uL 0.03-0.39 711-2) BASO x10^3 (test code 0.05 10*3/uL 0.01-0.07 = 704-7) Lab Interpretation Abnormal (test code = 04465-6) [facility]. METABOLIC PANEL (47148)2020-02-11 18:58:00 Test Item Value Reference Range Interpretation Comments NA (test code = 141 mmol/L 135-145 0716198955) K (test code = 4.5 mmol/L 3.5-5 3196309004) CL (test code = 103 mmol/L 98-108 9101182964) CO2 TOTAL (test code = 30 mmol/L 23-31 1302153920) AGAP (test code = 2-16 0602130113) BUN (test code = 21 mg/dL 7-23 4315917622) GLUCOSE (test code = 97 mg/dL 70-110 2697640431) CREATININE (test code 0.70 mg/dL 0.5-1.04 = 9381849172) TOTAL BILI (test code 0.3 mg/dL 0.1-1.1 = 1179284062) CALCIUM (test code = 10.1 mg/dL 8.6-10.6 6666428212) T PROTEIN (test code = 7.4 g/dL 6.3-8.2 0610766941) ALBUMIN (test code = 4.6 g/dL 3.5-5 9053749861) ALK PHOS (test code = 65 U/L 34-122 5420788403) ALTv (test code = 29 U/L 535 1742-6) AST(SGOT) (test code = 34 U/L 13-40 3091374727) eGFR Calculation mL/min/1.73m2 (Non-) (test code = 4547145892) eGFR Calculation mL/min/1.73m2 () (test code = 1672208663) SHADI (test code = SHADI) Association of Glomerular Filtration Rate (GFR) and Staging of Kidney Disease* + -+ + ---+| GFR (mL/min/1.73 m2) ?| With Kidney Damage ?| ?Without Kidney Damage+ -------+ ------+ ---------+| ?>90 ?| ?Stage one ?| ? Normal ?+ --+ -+ ----+| ?60-89 ?| ?Stage two ?| ? Decreased GFR ? + -+ + ---+| ?30-59 ?| ?Stage three ?| ? Stage three ? + -+ + ---+| ?15-29 ?| ?Stage four ? | ? Stage four ?+ --+ -+ ----+| ?<15 (or dialysis) ? ?| ?Stage five ? | ? Stage five ?+ --+ -+ ----+ *Each stage assumes the associated GFR level has been in effect for at least three months. ?Stages 1 to 5, with or without kidney disease, indicate chronic kidney disease. Notes: Determination of stages one and two (with eGFR >59mL/min/1.73 m2) requires estimation of kidney damage for at least three months as defined by structural or functional abnormalities of the kidney, manifested by either:Pathological abnormalities or Markers of kidney damage (including abnormalities in the composition of the blood or urine or abnormalities in imaging tests). [facility]"
[2021-12-09] MEDS ORDERED: METHYLPREDNISOLONE 125 MG INJ ONE (09:35)
[2021-12-09] MEDS ORDERED: DIPHENHYDRAMINE 50 MG/ML VIAL ONE (09:35)
[2021-12-09] MEDS ORDERED: FAMOTIDINE 20 MG TAB ONE (09:36)
[2021-12-09] MEDS ORDERED: NA CHLORIDE 0.9% 500 ML ONE (09:36)
--- NOTE | 2021-12-09 10:46 | EDPHYS ---
Physician Documentation [facility] Name: Julianne Olmstead Age: 80 yrs Sex: Female : 1940 Arrival Date: 12/09/2021 Time: 09:13 Bed 17 Private MD: ED Physician Rolando Romero HPI: 12/09 09:21 This 80 yrs old Female presents to ER via EMS with complaints of Left shoulder pain and pm1 swelling. 09:21 The patient or guardian complains of pain, that is acute. The complaints affect the pm1 lateral aspect of left shoulder. Context: resulted from pneumococcal vaccine yesterday. Onset: The symptoms/episode began/occurred yesterday. Treatment prior to arrival includes: no previous treatment. Modifying factors: The symptoms are alleviated by nothing. the symptoms are aggravated by nothing. Associated signs and symptoms: Pertinent positives: swelling, Pertinent negatives: fever. Severity of symptoms: in the emergency department the symptoms are unchanged. The patient has not experienced similar symptoms in the past. Patient with pneumococcal vaccine yesterday at the pharmacy. Historical: - Allergies: 09:16 PENICILLINS; ww - Home Meds: 09:16 trazodone 50 mg Oral tab 1 tab once daily [Active]; Coreg 25 mg Oral tab 1 tab 2 times ww per day [Active]; nifedipine 30 mg Oral TbER 1 tab once daily [Active]; potassium chloride 10 mEq Oral cpER 1 cap once daily [Active]; valsartan-hydrochlorothiazide 320-25 mg oral tab 1 tab once daily [Active]; - PMHx: 09:16 High Cholesterol; Hypertension; ww - Immunization history:: Adult Immunizations up to date, Pneumococcal vaccine is up to date. - Social history:: Smoking status: Patient denies any tobacco usage or history of. ROS: 09:21 Constitutional: Negative for fever, chills, and weight loss, Cardiovascular: Negative pm1 for chest pain, palpitations, and edema, Respiratory: Negative for shortness of breath, cough, wheezing, and pleuritic chest pain, Abdomen/GI: Negative for abdominal pain, nausea, vomiting, diarrhea, and constipation. 09:21 Skin: Negative for injury, rash, and discoloration, Neuro: Negative for headache, weakness, numbness, tingling, and seizure. 09:21 MS/extremity: Positive for pain, swelling, tenderness, of the left lateral shoulder. 09:21 All other systems are negative. Exam: 09:21 Constitutional: This is a well developed, well nourished patient who is awake, alert, pm1 and in no acute distress. Head/Face: Normocephalic, atraumatic. 09:21 Eyes: Exam is negative for acute changes, Periorbital structures: appear normal, Conjunctiva: no acute changes. 09:21 ENT: Exam is negative for acute changes, Mouth: no acute changes, Lips: normal, moist, Oral mucosa: normal, pink and intact, moist. 09:21 Cardiovascular: Exam negative for acute changes, Rate: normal, Rhythm: regular, Pulses: no pulse deficits are appreciated. 09:21 Respiratory: Exam negative for acute changes, respiratory distress, shortness of breath. 09:21 Skin: abscess, not appreciated, of the left arm, cellulitis, is not appreciated, on the left arm, small phlegmon present to left shoulder. Vital Signs: 09:15 BP 119 / 59; Pulse 77; Resp 18; Temp 97.5; Pulse Ox 97% ; Weight 74.84 kg; Height 5 ft. ww (152.40 cm); 10:00 BP 120 / 76; Pulse 76; Resp 17; Pulse Ox 100% ; Pain 1/10; jh6 11:15 BP 115 / 64; Pulse 72; Resp 17; Pulse Ox 100% ; Pain 0/10; jh6 09:15 Body Mass Index 32.22 (74.84 kg, 152.40 cm) MDM: 09:18 Patient medically screened. pm1 10:43 Data reviewed: vital signs. Data interpreted: Pulse oximetry: on room air is 97 %. pm1 Interpretation: normal. Counseling: I had a detailed discussion with the patient and/or guardian regarding: the historical points, exam findings, and any diagnostic results supporting the discharge/admit diagnosis, the need for outpatient follow up, to return to the emergency department if symptoms worsen or persist or if there are any questions or concerns that arise at home. 12/09 09:20 Order name: IV Saline Lock; Complete Time: 09:26 pm1 Administered Medications: 09:37 Drug: Benadryl (diphenhydrAMINE) 12.5 mg Route: IVP; Site: left antecubital; jh6 10:00 Follow up: Response: No adverse reaction [facility] 09:37 Drug: NS 0.9% 500 ml Route: IV; Rate: bolus; Site: left antecubital; 6 09:37 Drug: Pepcid (famotidine) 20 mg Route: PO; 6 10:00 Follow up: Response: No adverse reaction [facility] 09:37 Drug: SOLU-Medrol (methylPrednisoLONE) 125 mg Route: IVP; Site: left antecubital; 6 10:00 Follow up: Response: No adverse reaction [facility] Disposition: 14:30 Co-signature as Attending Physician, Rolando Romero MD I agree with the assessment and kdr plan of care. Disposition Summary: 12/09/21 10:46 Discharge Ordered Location: Home pm1 Problem: new pm1 Symptoms: have improved pm1 Condition: Stable pm1 Diagnosis - Adverse effect of other viral vaccines, initial encounter pm1 Followup: pm1 - With: Emergency Department - When: As needed - Reason: Worsening of condition Followup: pm1 - With: Private Physician - When: 2 - 3 days - Reason: Recheck today's complaints, Continuance of care, Re-evaluation by your physician Discharge Instructions: - Discharge Summary Sheet pm1 - Post-Injection Inflammatory Reaction pm1 Forms: - Medication Reconciliation Form pm1 - Thank You Letter pm1 - Antibiotic Education pm1 - Prescription Opioid Use pm1 Prescriptions: - Medrol (Roney) 4 mg Oral Tablets, Dose Pack - take 1 tablet by ORAL route as directed - follow package instructions; 1 pm1 packet; Refills: 0, Product Selection Permitted Signatures: Rolando Romero MD MD [facility] Keyshawn Vega NP CPAS pm1 Christiane Villa RN RN 6 Wendy Tirado RN RN
--- NOTE | 2021-12-09 10:46 | ER ---
Nurse's Notes [facility] Name: Julianne Olmstead Age: 80 yrs Sex: Female : 1940 Arrival Date: 12/09/2021 Time: 09:13 Bed 17 Private MD: Diagnosis: Adverse effect of other viral vaccines, initial encounter Presentation: 12/09 09:15 Chief complaint: EMS states: Had a pneumonia vaccine yesterday at [facility] in [place] [employer] and ww complaining of left arm pain and swelling at injection site. Coronavirus screen: Client denies travel out of the [place] in the last 14 days. Ebola Screen: Patient denies travel to an Ebola-affected area in the 21 days before illness onset. Initial Sepsis Screen: Does the patient meet any 2 criteria? No. Patient's initial sepsis screen is negative. Does the patient have a suspected source of infection? No. Patient's initial sepsis screen is negative. Risk Assessment: Do you want to hurt yourself or someone else? Patient reports no desire to harm self or others. Onset of symptoms was December 09, 2021. 09:15 Method Of Arrival: EMS: [facility] 09:15 Acuity: KIAH 4 ww Triage Assessment: 09:16 General: Appears in no apparent distress. comfortable, Behavior is cooperative. Pain: ww Complains of pain in left bicep. Neuro: [place]o Agitation-Sedation Scale (RASS): 0 - Alert and Calm Level of Consciousness is awake, alert, obeys commands, Oriented to person, place, time, situation, Speech is normal. Cardiovascular: Patient's skin is warm and dry. Respiratory: Airway is patent Respiratory effort is even, unlabored, Respiratory pattern is regular, symmetrical. GI: No signs and/or symptoms were reported involving the gastrointestinal system. : No signs and/or symptoms were reported regarding the genitourinary system. Derm: Skin is intact, is fragile, is thin, Skin is pink, warm \T\ dry. Musculoskeletal: Reports pain in left arm. Historical: - Allergies: 09:16 PENICILLINS; ww - Home Meds: 09:16 trazodone 50 mg Oral tab 1 tab once daily [Active]; Coreg 25 mg Oral tab 1 tab 2 times ww per day [Active]; nifedipine 30 mg Oral TbER 1 tab once daily [Active]; potassium chloride 10 mEq Oral cpER 1 cap once daily [Active]; valsartan-hydrochlorothiazide 320-25 mg oral tab 1 tab once daily [Active]; - PMHx: 09:16 High Cholesterol; Hypertension; ww - Immunization history:: Adult Immunizations up to date, Pneumococcal vaccine is up to date. - Social history:: Smoking status: Patient denies any tobacco usage or history of. Screenin:19 Abuse screen: Denies threats or abuse. Denies injuries from another. Nutritional ww screening: No deficits noted. Tuberculosis screening: No symptoms or risk factors identified. Fall Risk None identified. Assessment: 09:38 General: SEE TRIAGE NOTE. . jh6 10:30 Reassessment: Patient and/or family updated on plan of care and expected duration. Pain jh6 level reassessed. Patient is alert, oriented x 3, equal unlabored respirations, skin warm/dry/pink. Patient states feeling better. Patient states symptoms have improved. 10:30 Pain: Denies pain. jh6 11:15 Reassessment: No changes from previously documented assessment. Pt with verbal 6 understanding of meds and follow up with pcp. Vital Signs: 09:15 BP 119 / 59; Pulse 77; Resp 18; Temp 97.5; Pulse Ox 97% ; Weight 74.84 kg; Height 5 ft. (152.40 cm); 10:00 BP 120 / 76; Pulse 76; Resp 17; Pulse Ox 100% ; Pain 1/10; jh6 11:15 BP 115 / 64; Pulse 72; Resp 17; Pulse Ox 100% ; Pain 0/10; jh6 09:15 Body Mass Index 32.22 (74.84 kg, 152.40 cm) ED Course: 09:13 Patient arrived in ED. ww 09:14 Keyshawn Vega NP is PHCP. pm1 09:14 Rolando Romero MD is Attending Physician. pm1 09:16 Triage completed. ww 09:16 Arm band placed on. ww 09:17 Christiane Villa, EMMIE is Primary Nurse. jh6 09:19 Patient has correct armband on for positive identification. Bed in low position. Call ww light in reach. Side rails up X 1. Pulse ox on. NIBP on. 09:38 Inserted saline lock: 22 gauge in left antecubital area, using aseptic technique. jh6 11:16 IV discontinued, intact, bleeding controlled, No redness/swelling at site. Pressure 6 dressing applied. 11:17 No provider procedures requiring assistance completed. 6 Administered Medications: 09:37 Drug: Benadryl (diphenhydrAMINE) 12.5 mg Route: IVP; Site: left antecubital; 6 10:00 Follow up: Response: No adverse reaction [facility] 09:37 Drug: NS 0.9% 500 ml Route: IV; Rate: bolus; Site: left antecubital; 6 09:37 Drug: Pepcid (famotidine) 20 mg Route: PO; 6 10:00 Follow up: Response: No adverse reaction [facility] 09:37 Drug: SOLU-Medrol (methylPrednisoLONE) 125 mg Route: IVP; Site: left antecubital; 6 10:00 Follow up: Response: No adverse reaction [facility] Medication: 09:19 VIS not applicable for this client. Outcome: 10:46 Discharge ordered by . pm1 11:17 Discharged to home via wheelchair. [facility] 11:17 Condition: good 11:17 Discharge instructions given to patient, Instructed on discharge instructions, follow up and referral plans. Demonstrated understanding of instructions, follow-up care, medications, Prescriptions given X 1. 11:18 Patient left the ED. [facility] Signatures: Keyshawn Vega NP [employer] pm1 Christiane Villa RN RN [facility] Wendy Tirado RN RN ww
[2021-12-09 11:23] VITALS: TEMP 97.5
[2021-12-09 11:26] VITALS: O2SAT 100
[2021-12-09 11:29] VITALS: BP 115/64
== END 2021-12-09 11:18 | disposition home or self-care (01) ==
LOC: ER 09:07
DX: M25.512 Pain in left shoulder (principal); T88.1XXA Other complications following immunization, not elsewhere classified, initial encounter; Z88.0 Allergy status to penicillin; I10 Essential (primary) hypertension; E78.00 Pure hypercholesterolemia, unspecified
CPT/HCPCS: J1200; J7040; J2930; 96374; 96375; 99284